=== PATIENT | female | born 1940 | race Caucasian/White ===

== ENCOUNTER → 2016-07-20 16:48 | Outpatient (CLI) | payer MEDICARE ==
[2014-10-05 13:53] VITALS: BMI 29.5
[~2016-07-20 16:48] MED LIST: ADVAIR 250/501 DISK INH; AFRIN NASAL SPR15 ML NASAL; BENICAR HCT 20-1 TA1 PO; BROVANA15 MCG/2 M INH; CELEXA20 MG PO; CHLORASEPTIC177 ML TOPICAL; CLARITIN 10 MG10 MG PO; COLACE100 MG PO; CYMBALTA20 MG PO; DIOVAN40 MG PO; DIOVAN80 MG PO; DITROPAN X5 MG/BOTTL PO; FEXOFENADINE H180 MG PO; FLORAJEN3 CAPS460 MG PO; FLUTICASONE PRO16 GM NASAL; HYDROCHLOROTH12.5 M1 PO; HYDROCODONE-APA1 TAB PO; IPRAT-ALBUT 0.5-3 ML UPD; LASIX40 MG PO; LEVAQUIN500 MG PO; LEVAQUIN750 MG PO; MEDROL DOSE PACK4 MG PO; MUCINEX DM ER1 EAC1 PO; MUCINEX600 MG PO; NICODERM C1 PATCH .1 TRANSDERM; NICODERM C1 PATCH .2 TRANSDERM; NYSTATIN ORAL SU5 ML PO; OMNICEF300 MG PO; ONCOLOGY MOUTHWA5 ML PO; PREDNISONE10 MG PO; PRISTIQ50 MG PO; PROMETHAZINE W473 M1 PO; PROTONIX40 MG PO; PULMICORT0.5 MG/21 UPD; ROBITUSSIN AC (10 M1 PO; SALINE NASAL SP45 ML; SALINE NASAL SP45 ML NASAL; SINGULAIR10 MG PO; STERAPRED 5MG 125 MG PO; TESSALON PERLE100 MG PO; TOVIAZ8 MG PO; ULTRAM50 MG PO; VENTOLIN HFA18 GM INH; XANAX0.5 MG; XANAX0.5 MG PO; ZITHROMAX250 MG; ZITHROMAX250 MG PO
== END | disposition home or self-care (01) ==
LOC: D.MAMMO 13:15
DX: Z12.31 Encounter for screening mammogram for malignant neoplasm of breast (principal)

== ENCOUNTER → 2016-07-24 08:44 | Outpatient (CLI) | payer MEDICARE ==
[2014-10-05 13:53] VITALS: BMI 29.5
== END | disposition home or self-care (01) ==
LOC: D.RT 08:44
DX: J44.9 Chronic obstructive pulmonary disease, unspecified (principal)

== ENCOUNTER → 2016-08-13 14:34 | Outpatient (CLI) | payer MEDICARE ==
[2014-10-05 13:53] VITALS: BMI 29.5
== END | disposition home or self-care (01) ==
LOC: D.RAD 13:00
DX: J44.9 Chronic obstructive pulmonary disease, unspecified (principal)

== ENCOUNTER 2016-08-13 15:20 | Inpatient (IN) | payer MEDICARE ==
[~2016-08-13] VITALS: Ht 162.6 cm; Wt 80.7 kg
[~2016-08-13 15:20] MED LIST changes: -AFRIN NASAL SPR15 ML NASAL; -BROVANA15 MCG/2 M INH; -CELEXA20 MG PO; -COLACE100 MG PO; -DIOVAN40 MG PO; -FEXOFENADINE H180 MG PO; -FLORAJEN3 CAPS460 MG PO; -HYDROCHLOROTH12.5 M1 PO; -HYDROCODONE-APA1 TAB PO; -LASIX40 MG PO; -MUCINEX600 MG PO; -NICODERM C1 PATCH .2 TRANSDERM; -ONCOLOGY MOUTHWA5 ML PO; -PROMETHAZINE W473 M1 PO; -PULMICORT0.5 MG/21 UPD; -SALINE NASAL SP45 ML NASAL; -TESSALON PERLE100 MG PO; -ULTRAM50 MG PO; -VENTOLIN HFA18 GM INH; -XANAX0.5 MG PO
--- NOTE | 2016-08-13 15:30 | NUR ---
RECEIVED TO ROOM 2215 AT THIS TIME FROM DOCTOR'S OFFICE VIA WHEELCHAIR. ALERT AND ORIENTED. OXYGEN PLACED ON 2L VIA NC. PT AMBULATES INDEPENDENTLY AND SELF POSITIONS FOR COMFORT. 20G IV SITED TO LEFT FOREARM X1 ATTEMPT WITH BRISK BLOOD RETURN PRESENT. ASSESSMENT AND HISTORY OBTAINED PER FLOWSHEET. CALL LIGHT IN REACH, WILL CONTINUE WITH PLAN OF CARE.
[2016-08-13 15:45] VITALS: BP 150/74
[2016-08-13] MEDS ORDERED: ULTRAM50 MG PO (16:46)
[2016-08-13] MEDS ORDERED: HYDROCHLOROTH12.5 M1 PO (16:47)
[2016-08-13] MEDS ORDERED: CELEXA20 MG PO (16:47)
[2016-08-13] MEDS ORDERED: TOVIAZ8 MG PO (16:47)
[2016-08-13] MEDS ORDERED: DIOVAN40 MG PO (16:47)
[2016-08-13] MEDS ORDERED: TESSALON PERLE100 MG PO (16:50)
[2016-08-13] MEDS ORDERED: VENTOLIN HFA18 GM INH (16:51)
[2016-08-13] MEDS ORDERED: PROMETHAZINE W473 M1 PO (16:51)
[2016-08-13 17:24] LABS: BASOPHILS 0.5 % (0.0-2.0); EOSINOPHILS 0.6 % (0-7); HEMATOCRIT 45.6 % (36.0-48.0); HEMOGLOBIN 14.9 g/dL (12-16); IMMATURE GRANULOCYTES 1.5 % (0-5); LYMPHOCYTES 15.4 % (15-50); MCH 29.6 pg (26.0-34.0); MCHC 32.7 g/dL (31.0-37.0); MCV 90.7 fL (80.0-100.0); MEAN PLATELET VOLUME 10.3 fL (7.4-10.4); MONOCYTES 11.1 % (2-11); NEUTROPHILS 70.9 % (40-80); PLATELET COUNT 263 10x3/uL (130-400); RBC 5.03 10x6/uL (4.00-5.40); RDW 13.6 % (11.5-14.5); WBC 11.3 10x3/uL (4.8-10.8)
[2016-08-13 17:54] VITALS: BP 150/74; BMI 30.6
[2016-08-13 17:54] LABS: CALC OSMOLALITY 282 mosm/kg (275-300); CALCIUM 9.5 mg/dL (8.5-10.1); CARBON DIOXIDE 33.2 mmol/L (21.0-32.0); CHLORIDE - SERUM 100 mmol/L (98-107); CKMB 12.4 U/L (0.0-3.6); CREATINE KINASE 467 UL (21-215); GLUCOSE 100 mg/dL (74-106); SODIUM 141 mmol/L (136-145); TROPONIN-I 0.019 ng/mL (0.000-0.060); UREA NITROGEN 19 mg/dL (7-18); eGFR NON AFRICAN AMERICAN 57 mL/min (90-120)
[2016-08-13 20:00] VITALS: BP 157/85
--- NOTE | 2016-08-13 22:46 | NUR ---
AWAKE WITH THE TV ON AND GETTING AIDES TO RE-ADJUST HER UP IN THE BED. NO COMPLAINTS VOICED. RESPIRATION WITHOUT DISTRESS AND THE BED IS LOW, RAILS UP X'S 2, WITH THE CALL LIGHT AT HAND.
[2016-08-14] VITALS: BP 137/63
[2016-08-14 04:00] VITALS: BP 141/76
[2016-08-14 04:58] LABS: BASOPHILS 0.3 % (0.0-2.0); EOSINOPHILS 0 % (0-7); HEMATOCRIT 42.6 % (36.0-48.0); HEMOGLOBIN 13.7 g/dL (12-16); LYMPHOCYTES 10.3 % (15-50); MCH 29.2 pg (26.0-34.0); MCHC 32.2 g/dL (31.0-37.0); MCV 90.8 fL (80.0-100.0); MEAN PLATELET VOLUME 10.4 fL (7.4-10.4); MONOCYTES 5.1 % (2-11); NEUTROPHILS 82.3 % (40-80); PLATELET COUNT 250 10x3/uL (130-400); RBC 4.69 10x6/uL (4.00-5.40); RDW 13.8 % (11.5-14.5); WBC 8.6 10x3/uL (4.8-10.8)
[2016-08-14 05:18] LABS: ALBUMIN 3.1 g/dL (3.4-5.0); ANION GAP 9.5 mmol/L (8-16); BILIRUBIN - TOTAL 0.29 mg/dL (0.2-1.3); CALCIUM 9.1 mg/dL (8.5-10.1); CARBON DIOXIDE 32.4 mmol/L (21.0-32.0); CREATININE - SERUM 1.1 mg/dL (0.6-1.3); PHOSPHOROUS 3.7 mg/dL (2.5-4.9); POTASSIUM - SERUM 3.9 mmol/L (3.5-5.1); PROTEIN - SERUM 6.6 g/dL (6.4-8.2)
--- NOTE | 2016-08-14 07:45 | NUR ---
PT. ASLEEP ON BACK IN BED HOB 35 DEGREES WITH SRX2 RESP. EVEN AND NONLABORED WITH O2 AT 2L/MIN VIA NC. BED IN LOWEST POSITION WITH CALL LIGHT WITHIN REACH. WILL CONTINUE WITH PT. PLAN OF CARE
[2016-08-14 08:13] VITALS: BP 133/73
[2016-08-14] MEDS ORDERED: MUCINEX600 MG PO (10:03)
[2016-08-14 10:29] VITALS: Ht 162.6 cm; Wt 80.7 kg
--- NOTE | 2016-08-14 11:05 | NUR ---
PT. LEFT VIA W/C TO CT SCAN AT THIS TIME
--- NOTE | 2016-08-14 12:00 | NUR ---
PT. BACK FROM CT MD AND HOSE TESTER AT BEDSIDE
[2016-08-14 12:43] VITALS: BP 138/73
--- NOTE | 2016-08-14 15:09 | NUR ---
Patient Name: KAMALJIT BANG Admission Status: Urgent Accout number: [id number] Admission Date: 08-13-2016 : 1941 Admission Diagnosis:CHRONIC OBSTRUCTIVE PULMON DISEASE W ACUTE LOWER RESP I Attending: ALFREDO Current LOS: 1 Anticipated DC Date: 08-18-2016 Planned Disposition: Home with Home Health Primary Insurance: [employer] ADV Discharge Planning Comments: CM MET WITH PATIENT REGARDING D/C NEEDS AND PLANS. PATIENT STATED SHE LIVES ALONE AND ONE OF HER FRIENDS WILL PICK HER UP OR SHE WILL DRIVE HERSELF HOME AT DISCHARGE. PATIENT IS INDEPENDENT WITH HER CARE AND HAS A NEBULIZER, PORTABLE O2, AND HOME OXYGEN. PATIENTS PCP IS DR. LAZCANO AND PHARMACY IS [facility]. PATIENT HAS NOT HAD HOME HEALTH BUT SIGNED THE RUFINA FORM WITH [facility] [employer]. PATIENT DENIED ANY OTHER NEEDS. CM WILL CONTINUE TO FOLLOW PATIENT WITH D/C NEEDS AND PLANS. PCP DR. [facility]- [phone] KELLIE BANG (SON) [phone] TALATBruce GOMEZ (FRIEND) [phone] LYDIA BOSS (FRIEND) [phone] Rural Service Engineer: Jenelle Vargas Is the patient Alert and Oriented? Yes 0 * How many steps to enter\exit or inside your home? 3 W/O RAIL 0 * PCP DR. LAZCANO 0 * Pharmacy [facility] 0 * Preadmission Environment Home Alone 0 * ADLs Independent 0 * Equipment Nebulizer Oxygen 0 * Other Equipment PORTABLE O2 0 * List name and contact numbers for known caregivers / representatives who currently or will assist patient after discharge: TALAT GOMEZ (FRIEND) [phone] LYDIA BOSS (FRIEND) [phone] KELLIE BANG (SON) [phone] 0 * Additional services required to return to the preadmission environment? Yes 0 * Can the patient safely return to the preadmission environment? Yes 0 * Has this patient been hospitalized within the prior 30 days at any hospital? No 0 Grand Total: 0
[2016-08-14 15:50] VITALS: BP 128/67
--- NOTE | 2016-08-14 18:08 | NUR ---
LARGE LOOSE BROWN STOOL IN BRIEF AND TOILET
--- NOTE | 2016-08-14 19:41 | NUR ---
PATIENT REQUESTED PAIN MEDICATION FOR 10/10 PAIN ON HER RIGHT SIDE. PATIENT DENIES OTHER NEEDS AT THIS TIME. BED IN LOWEST POSITION AND CALL LIGHT WITHIN REACH.
[2016-08-14 21:03] VITALS: BP 147/66
[2016-08-15 01:17] VITALS: BP 137/71
[2016-08-15 04:00] VITALS: BP 127/63
[2016-08-15 06:12] LABS: BASOPHILS 0.4 % (0.0-2.0); EOSINOPHILS 0 % (0-7); HEMATOCRIT 42.4 % (36.0-48.0); HEMOGLOBIN 13.6 g/dL (12-16); IMMATURE GRANULOCYTES 2.1 % (0-5); LYMPHOCYTES 10.2 % (15-50); MCH 29.2 pg (26.0-34.0); MCHC 32.1 g/dL (31.0-37.0); MEAN PLATELET VOLUME 10.5 fL (7.4-10.4); MONOCYTES 5.1 % (2-11); NEUTROPHILS 82.2 % (40-80); PLATELET COUNT 272 10x3/uL (130-400); RBC 4.66 10x6/uL (4.00-5.40); RDW 13.8 % (11.5-14.5)
[2016-08-15 06:16] LABS: WBC 12.7 10x3/uL (4.8-10.8)
[2016-08-15 06:40] LABS: ALBUMIN 2.9 g/dL (3.4-5.0); ANION GAP 10.4 mmol/L (8-16); BILIRUBIN - TOTAL 0.3 mg/dL (0.2-1.3); CARBON DIOXIDE 32.3 mmol/L (21.0-32.0); POTASSIUM - SERUM 3.7 mmol/L (3.5-5.1); PROTEIN - SERUM 6.5 g/dL (6.4-8.2)
--- NOTE | 2016-08-15 07:15 | NUR ---
PATIENT RECEIVED IN HIGH [place]O POSITION RESTING WITH EYES CLOSED. RESPIRATIONS EVEN AND UNLABORED. SIDE RAILS UP X1. BED IN LOW POSITION. CALL LIGHT IN REACH.
[2016-08-15 08:24] VITALS: BP 149/78
--- NOTE | 2016-08-15 08:43 | NUR ---
PATIENT ALERT IN HIGH [place]O POSITION. RESPIRATIONS EVEN AND UNLABORED. TOLERATED BREAKFAST WELL. SCHEDULED MEDICATION ADMINISTERED. SIDE RAILS UP X1. BED IN LOW POSITION. CALL LIGHT IN REACH.
--- NOTE | 2016-08-15 12:15 | NUR ---
SITTING UP IN CHAIR AT BEDSIDE. RESPIRATIONS EVEN AND UNLABORED. PHYSICIAN AT BEDSIDE. CALL LIGHT IN REACH.
[2016-08-15 12:42] VITALS: BP 152/50
--- NOTE | 2016-08-15 14:38 | NUR ---
ALERT IN BED. C/O PAIN 04/06. ULTRAM PER PRN ORDER. DENIES FURTHER NEEDS. SIDE RAILS UP X2. BED IN LOW POSITION. CALL LIGHT IN REACH.
--- NOTE | 2016-08-15 16:50 | NUR ---
PATIENT IN HIGH NASCIMENTO POSITION. RESPIRATIONS EVEN AND UNLABORED. SCHEDULED IV ABX INITIATED. IV TO LEFT FOREARM PATENT. NO REDNESS OR INFLAMMATION NOTED. SIDE RAILS UP X2. BED IN LOW POSITION. CALL LIGHT IN REACH.
[2016-08-15 18:39] VITALS: BP 149/81
--- NOTE | 2016-08-15 19:32 | NUR ---
PATIENT ON NEB TREATMENT AND REQUESTED WATER. PATIENT DENIES OTHER NEEDS AT THIS TIME. BED IN LOWEST POSITION AND CALL LIGHT WITHIN REACH.
[2016-08-15 20:49] VITALS: BP 121/64
[2016-08-16] VITALS: BP 121/73
[2016-08-16 04:00] VITALS: BP 123/74
[2016-08-16 06:15] LABS: BASOPHILS 0.5 % (0.0-2.0); EOSINOPHILS 0 % (0-7); HEMATOCRIT 41.7 % (36.0-48.0); HEMOGLOBIN 13.4 g/dL (12-16); IMMATURE GRANULOCYTES 3.4 % (0-5); MCH 29.2 pg (26.0-34.0); MCHC 32.1 g/dL (31.0-37.0); MCV 90.8 fL (80.0-100.0); MEAN PLATELET VOLUME 9.9 fL (7.4-10.4); MONOCYTES 4.9 % (2-11); NEUTROPHILS 81.2 % (40-80); PLATELET COUNT 269 10x3/uL (130-400); RBC 4.59 10x6/uL (4.00-5.40); RDW 13.9 % (11.5-14.5); WBC 13.3 10x3/uL (4.8-10.8)
[2016-08-16 06:25] LABS: ALBUMIN 2.9 g/dL (3.4-5.0); ANION GAP 7.9 mmol/L (8-16); BILIRUBIN - TOTAL 0.3 mg/dL (0.2-1.3); CALCIUM 9.1 mg/dL (8.5-10.1); CARBON DIOXIDE 33.1 mmol/L (21.0-32.0); PROTEIN - SERUM 6.4 g/dL (6.4-8.2)
--- NOTE | 2016-08-16 07:05 | NUR ---
PATIENT RECEIVED IN HIGH NASCIMENTO POSITION RESTING WITH EYES CLOSED. RESPIRATIONS EVEN AND UNLABORED. SIDE RAILS UP X2. BED IN LOW POSITION. CALL LIGHT IN REACH.
[2016-08-16 08:07] VITALS: BP 154/81
--- NOTE | 2016-08-16 08:25 | NUR ---
PATIENT IN HIGH NASCIMENTO POSITION WATCHING TV. RESPIRATIONS EVEN AND UNLABORED. SCHEDULED MEDICATION ADMINISTERED. SIDE RAILS UP X2. BED IN LOW POSITION. CALL LIGHT IN REACH. DENIES NEEDS.
--- NOTE | 2016-08-16 11:20 | NUR ---
PATIENT SITTING UP IN CHAIR AT BEDSIDE. DENIES NEEDS. NO SIGNS OF DISTRESS NOTED. CALL LIGHT IN REACH.
[2016-08-16 12:03] VITALS: BP 110/65
--- NOTE | 2016-08-16 13:30 | NUR ---
PATIENT SITTING UP IN CHAIR ALERT AND TALKING ON PHONE. CALL LIGHT IN REACH.
--- NOTE | 2016-08-16 16:00 | NUR ---
PATIENT SITTING UP IN CHAIR ALERT. ASSISTED BACK TO BED. POSITIONED SELF FOR COMFORT. SCHEDULED MEDICATION ADMINISTERED. IV TUBING CHANGED PER PROTOCOL. DENIES NEEDS. SIDE RAILS UP X2. BED IN LOW POSITION. CALL LIGHT IN REACH.
[2016-08-16 16:07] VITALS: BP 124/64
--- NOTE | 2016-08-16 18:25 | NUR ---
PATIENT ALERT IN BED TALKING ON PHONE. SIDE RAILS UP X2. BED IN LOW POSITION. CALL LIGHT IN REACH.
--- NOTE | 2016-08-16 19:26 | NUR ---
PATIENT RESTING IN BED. PATIENT UPSET THAT SHE DOES NOT HAVE CHLORASEPTIC SPRAY. PATIENT DENIES OTHER NEEDS AT THIS TIME. BED IN LOWEST POSITION AND CALL LIGHT WITHIN REACH.
[2016-08-16 21:43] VITALS: BP 146/77
[2016-08-17 05:00] VITALS: BP 139/80
[2016-08-17 05:37] LABS: EOSINOPHILS 0 % (0-7); HEMATOCRIT 41.9 % (36.0-48.0); HEMOGLOBIN 13.3 g/dL (12-16); IMMATURE GRANULOCYTES 6.4 % (0-5); MCHC 31.7 g/dL (31.0-37.0); MCV 91.5 fL (80.0-100.0); MEAN PLATELET VOLUME 10.3 fL (7.4-10.4); MONOCYTES 6.8 % (2-11); NEUTROPHILS 76.8 % (40-80); PLATELET COUNT 286 10x3/uL (130-400); RBC 4.58 10x6/uL (4.00-5.40); RDW 13.7 % (11.5-14.5); WBC 14.3 10x3/uL (4.8-10.8)
[2016-08-17 05:46] LABS: APTT 23.7 SECONDS (22.8-39.4)
[2016-08-17 06:02] LABS: ALBUMIN 2.8 g/dL (3.4-5.0); ANION GAP 9.2 mmol/L (8-16); BILIRUBIN - TOTAL 0.22 mg/dL (0.2-1.3); CALCIUM 8.7 mg/dL (8.5-10.1); CARBON DIOXIDE 34.1 mmol/L (21.0-32.0); CREATININE - SERUM 0.9 mg/dL (0.6-1.3); POTASSIUM - SERUM 4.3 mmol/L (3.5-5.1); PROTEIN - SERUM 5.8 g/dL (6.4-8.2)
--- NOTE | 2016-08-17 07:00 | NUR ---
REPORT RECEIVED FROM ELECTRICAL SYSTEMS DESIGNER NURSE. CALL LIGHT IN REACH.
[2016-08-17 08:34] VITALS: BP 156/84
--- NOTE | 2016-08-17 09:22 | NUR ---
AM MEDS ADMINISTERED PER TAYLOR GILBERT. CALL LIGHT IN REACH.
--- NOTE | 2016-08-17 09:37 | NUR ---
OFFERED PATIENT SCDs D/T MD ORDER BUT PATIENT REFUSES. EXPLAINED IMPORTANCE OF THEM BUT SHE STILL REFUSES.
--- NOTE | 2016-08-17 10:40 | NUR ---
NO NEEDS VOICED AT THIS TIME. CALL LIGHT IN REACH.
[2016-08-17 12:31] VITALS: BP 150/73
--- NOTE | 2016-08-17 12:31 | NUR ---
LYING IN BED,WITHOUT DISTRESS.CALL LIGHT IN REACH
--- NOTE | 2016-08-17 13:51 | NUR ---
PATIENT IS GOING FOR A WALK WITH PYSICAL THERAPY. HAS A FAMILY MEMBER IN THE ROOM WITH HER. ASKED FOR SOME ICE CREAM FOR HER THROAT WHEN SHE GETS BACK.
--- NOTE | 2016-08-17 14:42 | NUR ---
PATIENT SITTING UP IN CHAIR EATING CAKE. TOOK HER CONSENT FORM TO HER. INFORMED HER OF THE PROCEDURE THAT WAS GOING TO TAKE PLACE IN THE MORNING AND SHE STATED THAT SHE DID NOT WANT TO SIGN THE CONSENT UNLESS THE DOCTOR PERFORMING THE PROCEDURE CAME TO TALK TO HER. CALLED RADIOLOGY AND THEY STATED THAT THE DOCTOR WOULD BE AROUND IN THE MORNING TO EXPLAIN EVERYTHING THAT WOULD BE TAKING PLACE. INFORMED PATIENT OF THAT. DOCTOR STACY WAS MAKING HIS ROUNDS AND EXPLAINED THE PROCEDURE TO HER AND SHE WANTED TO SIGN THE CONSENT AFTER THAT.
--- NOTE | 2016-08-17 16:25 | NUR ---
MARLEEN PEREIRA, IN ROOM AT THIS TIME TO SEE PATIENT.
--- NOTE | 2016-08-17 18:33 | NUR ---
NO CHANGES IN INITIAL ASSESSMENT. CALL LIGHT IN REACH. WILL CONTINUE WITH PLAN OF CARE.
[2016-08-17 19:00] VITALS: BP 128/58
--- NOTE | 2016-08-17 20:03 | NUR ---
PATIENT WITH STUDENT NURSE AT BEDSIDE. PATIENT DENIES NEEDS AT THIS TIME. BED IN LOWEST POSITION AND CALL LIGHT WITHIN REACH.
[2016-08-18] VITALS (14 sets, daily range): BP systolic 110–176; BP diastolic 62–94
[2016-08-18 05:16] LABS: BASOPHILS 1.7 % (0.0-2.0); EOSINOPHILS 0 % (0-7); HEMATOCRIT 42.2 % (36.0-48.0); HEMOGLOBIN 13.3 g/dL (12-16); LYMPHOCYTES 8.6 % (15-50); MCH 29.1 pg (26.0-34.0); MCHC 31.5 g/dL (31.0-37.0); MCV 92.3 fL (80.0-100.0); MEAN PLATELET VOLUME 10.2 fL (7.4-10.4); MONOCYTES 6.1 % (2-11); NEUTROPHILS 74.6 % (40-80); PLATELET COUNT 264 10x3/uL (130-400); RBC 4.57 10x6/uL (4.00-5.40); RDW 13.9 % (11.5-14.5); WBC 15.3 10x3/uL (4.8-10.8)
[2016-08-18 05:41] LABS: ALBUMIN 2.8 g/dL (3.4-5.0); ANION GAP 7.9 mmol/L (8-16); BILIRUBIN - TOTAL 0.4 mg/dL (0.2-1.3); CALCIUM 8.7 mg/dL (8.5-10.1); CARBON DIOXIDE 34.4 mmol/L (21.0-32.0); CREATININE - SERUM 0.9 mg/dL (0.6-1.3); POTASSIUM - SERUM 4.3 mmol/L (3.5-5.1)
--- NOTE | 2016-08-18 08:10 | NUR ---
TO X-RAY VIA BED AT PRESENT.
--- NOTE | 2016-08-18 13:54 | NUR ---
NUTRITION MONITORING & EVAL CHART REVIEWED, PT VISIT. TOLERATING REG DIET. GOOD INTAKE MEALS. WILL CONTINUE TO PROVIDE DIET, MONITOR PT PROGRESS. RD FOLLOWING
--- NOTE | 2016-08-18 19:30 | NUR ---
TO REHAB VIA W/CAT PRESENT.
--- NOTE | 2016-08-18 19:40 | NUR ---
PATIENT HAS GUEST AT BEDSIDE AND DENIES NEEDS AT THIS TIME. BED IN LOWEST POSITION AND CALL LIGHT WITHIN REACH.
[2016-08-19] VITALS: BP 165/91
[2016-08-19 04:00] VITALS: BP 153/87
--- NOTE | 2016-08-19 07:30 | NUR ---
REPORT RECEIVED FROM COMPANY DRIVER NURSE. CALL LIGHT IN REACH.
[2016-08-19 08:31] VITALS: BP 148/85
--- NOTE | 2016-08-19 09:10 | NUR ---
ASSESSMENT COMPLETED. REFUSES SCDs. CALL LIGHT IN REACH. WILL CONTINUE WITH PLAN OF CARE.
--- NOTE | 2016-08-19 09:18 | NUR ---
NORCO PO WITH AM MEDS ADMINISTERED PER STUDENT NURSE AND INSTRUCTOR.
--- NOTE | 2016-08-19 10:46 | NUR ---
PT SEEN FOR RN DIALYSIS NOTE. STATES UPSET WITH NOT ABLE TO HAVE NASAL SALINE LEFT AT BEDSIDE. WILL ASK DOCTOR IF THIS WILL BE ALLOWED. STATES DID NOT SLEEP MUCH LAST MUCH DUE TO MUCUS IN THROAT. CALL LIGHT IN REACH
[2016-08-19 11:42] LABS: BASOPHILS 1.2 % (0.0-2.0); EOSINOPHILS 0.1 % (0-7); HEMATOCRIT 42.2 % (36.0-48.0); HEMOGLOBIN 13.5 g/dL (12-16); IMMATURE GRANULOCYTES 9.7 % (0-5); LYMPHOCYTES 10.3 % (15-50); MCH 28.8 pg (26.0-34.0); MEAN PLATELET VOLUME 9.8 fL (7.4-10.4); MONOCYTES 8.9 % (2-11); NEUTROPHILS 69.8 % (40-80); PLATELET COUNT 273 10x3/uL (130-400); RBC 4.68 10x6/uL (4.00-5.40); RDW 13.7 % (11.5-14.5); WBC 14.6 10x3/uL (4.8-10.8)
[2016-08-19 11:46] VITALS: BP 162/74
[2016-08-19 11:58] LABS: ALBUMIN 2.9 g/dL (3.4-5.0); ANION GAP 4.6 mmol/L (8-16); BILIRUBIN - TOTAL 0.54 mg/dL (0.2-1.3); CALCIUM 8.7 mg/dL (8.5-10.1); CARBON DIOXIDE 37.7 mmol/L (21.0-32.0); MCV 90.2 fL (80.0-100.0); POTASSIUM - SERUM 4.3 mmol/L (3.5-5.1); PROTEIN - SERUM 6.1 g/dL (6.4-8.2)
--- NOTE | 2016-08-19 12:40 | NUR ---
SITTING IN CHAIR. NO NEEDS VOICED AT THIS TIME. CALL LIGHT IN REACH.
--- NOTE | 2016-08-19 14:45 | NUR ---
DENIES NEEDS AT THIS TIME. CALL LIGHT IN REACH.
[2016-08-19 16:17] VITALS: BP 147/67
--- NOTE | 2016-08-19 16:19 | NUR ---
NORCO PO WITH EVENING MEDS. CALL LIGHT IN REACH. XANAX PO.
--- NOTE | 2016-08-19 16:24 | NUR ---
IV TUBING CHANGED PER HOSPITAL PROTOCOL.
--- NOTE | 2016-08-19 16:27 | NUR ---
IV FLUIDS DECREASED TO 10 CC/HR BECAUSE OF SLIGHT SWELLING IN FEET.
--- NOTE | 2016-08-19 18:01 | NUR ---
NO CHANGES IN INITIAL ASSESSMENT. CALL LIGHT IN REACH. STILL REFUSES SCDs. WILL CONTINUE WITH PLAN OF CARE.
--- NOTE | 2016-08-19 19:45 | NUR ---
PATIENT TALKING ON PHONE AND DENIES NEEDS AT THIS TIME. BED IN LOWEST POSITION AND CALL LIGHT WITHIN REACH.
[2016-08-19 21:00] VITALS: BP 130/67
--- NOTE | 2016-08-20 00:33 | NUR ---
RESTING WITH EYES CLOSED, HOB @ 45 DEGREES, PROPPED ON PILLOWS, NO DISTRESS NOTED, SR'S UP, CL IN REACH, WILL MONITOR
[2016-08-20 02:30] VITALS: BP 160/79
[2016-08-20 05:00] VITALS: BP 144/66
[2016-08-20 05:40] LABS: BASOPHILS 1.8 % (0.0-2.0); EOSINOPHILS 0.2 % (0-7); HEMATOCRIT 40.7 % (36.0-48.0); HEMOGLOBIN 13.1 g/dL (12-16); IMMATURE GRANULOCYTES 11.6 % (0-5); MCH 29.4 pg (26.0-34.0); MCHC 32.2 g/dL (31.0-37.0); MCV 91.3 fL (80.0-100.0); MONOCYTES 6.9 % (2-11); NEUTROPHILS 68.5 % (40-80); PLATELET COUNT 260 10x3/uL (130-400); RBC 4.46 10x6/uL (4.00-5.40); RDW 13.7 % (11.5-14.5); WBC 12.7 10x3/uL (4.8-10.8)
[2016-08-20 05:59] LABS: ALBUMIN 2.6 g/dL (3.4-5.0); ANION GAP 5.8 mmol/L (8-16); BILIRUBIN - TOTAL 0.4 mg/dL (0.2-1.3); CALCIUM 8.2 mg/dL (8.5-10.1); CARBON DIOXIDE 36.6 mmol/L (21.0-32.0); CREATININE - SERUM 0.9 mg/dL (0.6-1.3); POTASSIUM - SERUM 4.4 mmol/L (3.5-5.1); PROTEIN - SERUM 5.5 g/dL (6.4-8.2)
--- NOTE | 2016-08-20 08:00 | NUR ---
PT ASSESSMENT COMPLETE AWAKE AND ALERT ORINETED X 3 LUNGS CLAER BILATERALLY NO ACUTE DISTRESS NOTED VOICES ALL NEEDS TO STAFF PT VERY DEMANDING AND DOES REFUSE CARE AT TIMES. TOOK ALL MEDS WITH NO DIFFICULTY. WILL MONITOR
[2016-08-20 08:35] VITALS: BP 149/84
--- NOTE | 2016-08-20 11:59 | NUR ---
PT SEEN FOR TAYLOR AGUILERA THIS AM. STATES WAS SOB LAST NIGHT AFTER WAKING UP FROM BAD DREAM X 2 TIMES. STATES EDEMA WAS BAD AND DOESNT KNOW WHY SHE SWELLS AT NIGHT. NO SOB THIS AM. CALL LIGHT IN REACH
[2016-08-20 13:31] VITALS: BP 146/69
--- NOTE | 2016-08-20 15:58 | NUR ---
PT AWAKE AND ALERT ORIENTED UPSET SHE HAS RECIEVED "BAD NEWS" FROM DR GUSTAFSON STATES HE TOLD ME I HAVE CANCER. WILL MONITOR FOR EMOTIONAL NEEDS WELL PHYSICAL NEEDS.
[2016-08-20 16:17] VITALS: BP 143/84
[2016-08-20 20:00] VITALS: BP 142/85
[2016-08-21 03:00] VITALS: BP 132/55
[2016-08-21 05:49] LABS: EOSINOPHILS 0.1 % (0-7); HEMATOCRIT 42.3 % (36.0-48.0); HEMOGLOBIN 13.8 g/dL (12-16); IMMATURE GRANULOCYTES 8.8 % (0-5); LYMPHOCYTES 8.2 % (15-50); MCH 29.6 pg (26.0-34.0); MCHC 32.6 g/dL (31.0-37.0); MCV 90.8 fL (80.0-100.0); MEAN PLATELET VOLUME 10.3 fL (7.4-10.4); MONOCYTES 4.5 % (2-11); NEUTROPHILS 77.4 % (40-80); PLATELET COUNT 270 10x3/uL (130-400); RBC 4.66 10x6/uL (4.00-5.40); RDW 13.9 % (11.5-14.5); WBC 15.2 10x3/uL (4.8-10.8)
[2016-08-21 06:05] LABS: ALBUMIN 2.7 g/dL (3.4-5.0); ANION GAP 7.1 mmol/L (8-16); BILIRUBIN - TOTAL 0.4 mg/dL (0.2-1.3); CALCIUM 8.4 mg/dL (8.5-10.1); CARBON DIOXIDE 36.2 mmol/L (21.0-32.0); CREATININE - SERUM 1.1 mg/dL (0.6-1.3); POTASSIUM - SERUM 4.3 mmol/L (3.5-5.1); PROTEIN - SERUM 5.8 g/dL (6.4-8.2)
--- NOTE | 2016-08-21 07:00 | NUR ---
PT STAYED UP LATE BUT SLEPT WELL FROM 0100 ON. PT HAD SHOWER AND BED CHANGE. +3 DEPENDENT EDEMA. SIGNIFICANTLY REDUCED AFTER ELEVATING ON PILLOW. COMPLETE ASSESSMENT PER FLOW-SHEET. WILL CONTINUE TO MONITOR.
--- NOTE | 2016-08-21 08:00 | NUR ---
PT ASSESSMENT COMPLETE AWAKE AND ALERT ORINETED X 3 LUNGS WITH RHONCHI NOTED TO RIGHT UPPER LOBE SEE ASSESSMENT FLOW SHEET
[2016-08-21 08:13] VITALS: BP 155/86
--- NOTE | 2016-08-21 08:47 | EC ---
PATIENT:KAMALJIT BANG DATE OF SERVICE: 08/13/16 SEX: F MEDICAL RECORD: [id number] DATE OF : 42 LOCATION:[facility] AGE OF PATIENT: 76 ADMISSION DATE: 08/13/16 REFERRING PHYSICIAN: INTERPRETING PHYSICIAN: ALEXIA BEAN MD ECHOCARDIOGRAM REPORT ECHO CHARGES 4 ECHO COMPLETE CLINICAL DIAGNOSIS: SYNCOPE/FEVER ECHOCARDIOGRAPHIC MEASUREMENTS (adult normal given) AC root (d.<3.7cm) 3.5 LV Septum d (<1.2 cm> 1.3 Valve Excursion 1.4 LV Septum (systole) 1.4 Left Atria (s.<4.0cm> 3.6 LVPW d(<1.2cm) 1.4 RV (d.<2.3cm) 3.7 LVPW (sytole) 1.8 LV diastole(<5.6CM) 4.8 MV E-F(>70mm/sec) LV systole 2.9 LVOT Diameter 1.8 MV exc.(>10mm) Est.ejection fraction (50-75%) Pericardial Effusion N DOPPLER: LVIT A 102 E 72.0 LA RVSP 23 LVOT 100 AOP1/2T Asc. Ao 172 RVOT RA PA AV Gradient Peak 11.77 AV Mean 5.9 AV Area 1.8 MV Gradient Peak 6.28 MV Mean 2.07 MV Area COMMENTS: Prosthetic Aides Teacher: Cecilia HAWK Head Of Product:1 Dr. Bean TAPE# PACS DATE OF SERVICE: 08/20/2016 Echocardiogram FINDINGS: 1. Left ventricular chamber size is within normal limits. Left ventricular systolic function is normal. Overall ejection fraction estimated at 60%. 2. Left atrium is within normal limits at 3.6 cm. Right atrium and right ventricular chamber sizes are mildly dilated. 3. Valvular structures have normal structure and motion. ECHOCARDIOGRAM REPORT [id number] KAMALJIT BANG 4. Doppler interrogation reveals mild tricuspid regurgitation, no other valvular insufficiency or stenosis. Pulmonary systolic pressure is normal estimated at 23 mmHg. 5. No evidence of pericardial effusion or left ventricular thrombus. TRANSINT:[id number] Voice Confirmation ID: [id number] DOCUMENT ID: [id number] ALEXIA BEAN MD at 0847 CC: [id number] DICTATION DATE: 08/20/16 1248 GOLF BALL MARKER: 08/20/16 1406 ADM IN [facility] [address] [facility], [facility]
--- NOTE | 2016-08-21 11:50 | NUR ---
AWAKE AND ALERT. ORIENTED X3. NO C/O AT THIS TIME. LUNGS ARE CLEAR BUT DIMINISHED. NO NEEDS EXPRESSED.
[2016-08-21 12:26] VITALS: BP 148/80
--- NOTE | 2016-08-21 16:00 | NUR ---
PT SON AT SIDE UPSET DUE TO NEW DX OF CA WITH POSSIBLE METS.
[2016-08-21 16:02] VITALS: BP 113/50
--- NOTE | 2016-08-21 20:00 | NUR ---
ASSESSMENT COMPLETED, NO ACUTE DISTRESS NOTED, NC IN PLACE, SR'S UP , CL IN REACH, WILL MONITOR
--- NOTE | 2016-08-21 21:37 | NUR ---
MEDS GIVEN PER AUG, REFUSED MIRALAX, COLACE AND MUCINEX, KWAME WELL, DENIES NEEDS, IN GOOD SPIRITS, NO DISTRESS NOTED, CL IN REACH
--- NOTE | 2016-08-21 23:28 | NUR ---
SITTING UP IN BED TALKING WITH VISITOR, NO DISTRESS NOTED, DENIES NEEDS, FALL PRECAUTIONS IN PLACE, CL IN REACH
--- NOTE | 2016-08-22 03:13 | NUR ---
RESTING WITH EYES CLOSED, RESP WITH EASE, HOB ELEVATED,NC IN PLACE, CL IN REACH
[2016-08-22 04:00] VITALS: BP 176/77
[2016-08-22 05:42] LABS: BASOPHILS 0.5 % (0.0-2.0); EOSINOPHILS 0.1 % (0-7); HEMATOCRIT 40.4 % (36.0-48.0); HEMOGLOBIN 12.8 g/dL (12-16); IMMATURE GRANULOCYTES 7.4 % (0-5); LYMPHOCYTES 7.4 % (15-50); MCHC 31.7 g/dL (31.0-37.0); MCV 91.4 fL (80.0-100.0); MONOCYTES 5.2 % (2-11); NEUTROPHILS 79.4 % (40-80); PLATELET COUNT 258 10x3/uL (130-400); RBC 4.42 10x6/uL (4.00-5.40); RDW 13.9 % (11.5-14.5); WBC 16.7 10x3/uL (4.8-10.8)
[2016-08-22 06:17] LABS: ALBUMIN 2.5 g/dL (3.4-5.0); ANION GAP 7.2 mmol/L (8-16); BILIRUBIN - TOTAL 0.6 mg/dL (0.2-1.3); CALCIUM 8.3 mg/dL (8.5-10.1); CARBON DIOXIDE 33.9 mmol/L (21.0-32.0); CREATININE - SERUM 0.9 mg/dL (0.6-1.3); POTASSIUM - SERUM 4.1 mmol/L (3.5-5.1); PROTEIN - SERUM 5.5 g/dL (6.4-8.2)
--- NOTE | 2016-08-22 07:00 | NUR ---
REPORT RECIEVED ASSUMED CARE. PATIENT IN BED WITH IV INTACT. NO COMPLAINTS AT THIS TIME. CALL LIGHT WITHIN REACH.
--- NOTE | 2016-08-22 09:00 | NUR ---
ASSESSMENT COMPLETE, VS STABLE. PATIENT IV INTACT. PATIENT UPSET BECAUSE SHE STATED SHE HAD BEEN LEFT IN URINE FOR FIVE HOURS DURING THE NIGHT AND WAS WET AT THIS TIME. EXPLAINED TO THE PATIENT WE WOULD CLEAN HER UP. STATED SHE DIDNT WANT IT DONE UNTIL AFTER BREAKFAST. SHE STATED SHE WAS TOLD BY NIGHT TIERCE FILLER THAT HE WOULD BE BACK TO CLEAN HER BEFORE HE LEFT AND HE DIDNT SHOW BACK UP. KUSUM BENITEZ 7A SHIFT STATED SHE HAD ASKED THE NIGHT TIERCE FILLER TO CLEAN PATIENT BEFORE HE LEFT. STATED HE WOULD. EXPLAINED TO PATIENT I WOULD SPEAK WITH NIGHT TIERCE FILLER AND TREMAINE HARVEY ABOUT INCIDENT. VERBALIZED UNDERSTANDING. MARTA TIERCE FILLER IN TO HELP PATIENT GET CLEANED UP AT THIS TIME. CALL LIGHT WITHIN REACH.
[2016-08-22 10:36] VITALS: BP 148/79
[2016-08-22 11:32] VITALS: BP 136/79
--- NOTE | 2016-08-22 13:00 | NUR ---
PATIENT IN BED WITH IV INTACT. NO COMPLAINTS AT THIS TIME. IV INTACT. CALL LIGHT WITHIN REACH.
[2016-08-22 15:12] VITALS: BP 140/79
--- NOTE | 2016-08-22 16:50 | NUR ---
PATIENT SITTING UP IN BED WITH IV INTACT. NO COMPLAINTS AT THIS TIME. FAMILY AT BEDSIDE. CALL LIGHT WITHIN REACH.
--- NOTE | 2016-08-22 18:50 | NUR ---
PATIENT SITTING UP IN BED WITH IV INTACT. RECIEVING BREATHING TREATMENT AT THIS TIME. NO COMPLAINTS. CALL LIGHT WITHIN REACH. SPOKE WITH GEOPHYSICAL PARTY CHIEF AND RN ABOUT PATIENTS COMPLAINTS FROM EARLIER.
--- NOTE | 2016-08-22 19:51 | NUR ---
Late Entry 1145- 1250. JOSELITO received request to speak w/ patient' son, Reinaldo Mata. He lives in [place] and works. He is aware of pt's new CA of Lung diagnosis. He had many questions and is concerned about pt's care post discharge. Had questions regarding her chemo, side effects and needs. Reviewed MD plan. Provided some general information regarding the chemo DR had told him pt would receive. Provided contact phone number for [employer]. Discuss managed Medicare PROVIDER. Advised he speak w/ the travel insurance agent regarding what services maybe available. He had questions regarding transportation. Discussed POA, DNR issues. He states he and his mother has had some discussion. Discussed home health services as patient lives alone. Son returned to his mother's room to await pulmonary MD. JOSELITO had spoke w/ the patient and introduced myself before meeting w/ the son.
--- NOTE | 2016-08-22 20:00 | NUR ---
ASSESSMENT COMPLETED, NO ACUTE DISTRESS NOTED, NC AND FALL PRECAUTIONS IN PLACE, CL IN REACH, WILL MONITOR
--- NOTE | 2016-08-22 21:24 | NUR ---
PRN NORCO AND XANAX GIVEN PER REQUEST ALONG WITH ROUTINE MEDS, KWAME WELL, FALL PRECAUTIONS IN PLACE, CL IN REACH
[2016-08-22 21:58] VITALS: BP 145/73
--- NOTE | 2016-08-23 04:04 | NUR ---
PRN PAIN AND ANXIETY MEDS GIVEN PER PT REQUEST, KWAME WELL, CL IN REACH
[2016-08-23 04:30] VITALS: BP 164/98
[2016-08-23 04:58] LABS: BASOPHILS 0.7 % (0.0-2.0); EOSINOPHILS 0.2 % (0-7); HEMATOCRIT 42.6 % (36.0-48.0); HEMOGLOBIN 13.7 g/dL (12-16); IMMATURE GRANULOCYTES 6.3 % (0-5); LYMPHOCYTES 9.2 % (15-50); MCH 29.1 pg (26.0-34.0); MCHC 32.2 g/dL (31.0-37.0); MCV 90.6 fL (80.0-100.0); MEAN PLATELET VOLUME 9.9 fL (7.4-10.4); NEUTROPHILS 74.6 % (40-80); PLATELET COUNT 272 10x3/uL (130-400); RDW 13.9 % (11.5-14.5); WBC 19.8 10x3/uL (4.8-10.8)
[2016-08-23 05:00] VITALS: BP 144/72
[2016-08-23 05:22] LABS: ANION GAP 7.9 mmol/L (8-16); BILIRUBIN - TOTAL 0.54 mg/dL (0.2-1.3); CALCIUM 9.1 mg/dL (8.5-10.1); CARBON DIOXIDE 34.9 mmol/L (21.0-32.0); CREATININE - SERUM 0.9 mg/dL (0.6-1.3); POTASSIUM - SERUM 3.8 mmol/L (3.5-5.1); PROTEIN - SERUM 6.1 g/dL (6.4-8.2)
--- NOTE | 2016-08-23 06:24 | NUR ---
IV SITE TO R HAND INFILTRATED, DC'D WITH CATH INTACT, ATTEMPTED TO RESITE X1 IN L FOREARM, PT VERY JUMPY, REFUSED 2ND ATTEMPT UNTIL "THE PAIN MEDICINE AND XANAX HAVE TIME TO SOAK IN", [address] IN L HAND AT THIS TIME X1 ATTEMPT, MED ADMINISTERED PER AUG, KWAME WELL, CL IN REACH
--- NOTE | 2016-08-23 07:00 | NUR ---
REPORT RECIEVED ASSUMED CARE. PATIENT IN BED WITH IV INTACT. NO COMPLAINTS. EYES CLOSED RESTING QUIETLY. CALL LIGHT WITHIN REACH.
[2016-08-23 08:37] VITALS: BP 142/82
[2016-08-23 12:00] VITALS: BP 129/64
[2016-08-23 15:58] VITALS: BP 128/60
--- NOTE | 2016-08-23 18:32 | NUR ---
PATIENT IN BED WITH IV INTACT. NO COMPLAINTS AT THIS TIME. SITTING UP IN BED TALKING ON THE PHONE. CALL LIGHT WITHIN REACH.
--- NOTE | 2016-08-23 19:15 | NUR ---
RECIEVED SHIFT REPORT. PT IS LYING IN BED. ALERT AND ORIENTED AND ABLE TO VERBALIZE NEEDS. IV IS PATENT AND FLUIDS ARE RUNNING PER ORDER. O2 @ 2 PER NASAL CANNULA. PT IS ABMULATORY WITH ASSISTANCE BUT IS ABLE TO TURN SELF IN BED FOR COMFORT AND SKIN CARE. PT STATES PAIN IS 4/10. PT REQUESTING XANAX. INSTRUCTED PT THAT I WOULD BRING WITH NIGHT TIME MEDICATIONS. VERBALIZED UNDERSTANDING. NO FURTHER NEEDS AT THIS TIME. WILL CONTINUE TO MONITOR. SIDE RAILS ARE UP X 2. BED IS IN LOWEST POSITION. CALL LIGHT IS WITHIN REACH.
--- NOTE | 2016-08-23 20:10 | NUR ---
SHIFT ASSESSMENT COMPLETED. NIGHT MEDS GIVEN WITH NO PROBLEMS. REQUESTED XANAX ADMINISTERED PER ORDER. PT C/O PAIN 10/05. ADMINISTERED PRESCRIBED PRN NORCO PER ORDER. DENIES FURTHER NEEDS. WILL MONITOR. SIDE RAILS X 2. BED LOW. CALL LIGHT IN REACH.
[2016-08-23 21:00] VITALS: BP 154/81
[2016-08-24 01:00] VITALS: BP 144/80
[2016-08-24 05:00] VITALS: BP 138/78
[2016-08-24 05:39] LABS: BASOPHILS 0.9 % (0.0-2.0); EOSINOPHILS 0.2 % (0-7); HEMOGLOBIN 13.8 g/dL (12-16); IMMATURE GRANULOCYTES 6.7 % (0-5); LYMPHOCYTES 10.4 % (15-50); MCH 29.5 pg (26.0-34.0); MCHC 32.1 g/dL (31.0-37.0); MCV 91.9 fL (80.0-100.0); MEAN PLATELET VOLUME 10.5 fL (7.4-10.4); MONOCYTES 7.7 % (2-11); NEUTROPHILS 74.1 % (40-80); PLATELET COUNT 254 10x3/uL (130-400); RBC 4.68 10x6/uL (4.00-5.40); RDW 14.3 % (11.5-14.5); WBC 18.9 10x3/uL (4.8-10.8)
[2016-08-24 05:50] LABS: ALBUMIN 3.2 g/dL (3.4-5.0); ANION GAP 12.2 mmol/L (8-16); BILIRUBIN - TOTAL 0.63 mg/dL (0.2-1.3); CARBON DIOXIDE 31.6 mmol/L (21.0-32.0); CREATININE - SERUM 0.9 mg/dL (0.6-1.3); POTASSIUM - SERUM 3.8 mmol/L (3.5-5.1); PROTEIN - SERUM 6.1 g/dL (6.4-8.2)
--- NOTE | 2016-08-24 07:00 | NUR ---
REPORT RECIEVED ASSUMED CARE. PATIENT IN BED WITH IV INTACT. NO COMPLAINTS OR SIGNS OF DISTRESS. IV INTACT. O2 ON. CALL LIGHT WITHIN REACH.
[2016-08-24 07:56] VITALS: BP 127/62
--- NOTE | 2016-08-24 08:10 | NUR ---
PATIENT ASSESSMENT COMPLETE, VS STABLE. NO COMPLAINTS. IV INTACT. CALL LIGHT WITHIN REACH.
[2016-08-24 12:42] VITALS: BP 128/70
--- NOTE | 2016-08-24 13:18 | NUR ---
NUTRITION MONITORING & EVAL CHART REVIEWED. PT TOLERATING REG DIET. 50 TO 75% INTAKE RECENT MEALS. RD FOLLOWING
[2016-08-24 16:07] VITALS: BP 113/63
--- NOTE | 2016-08-24 18:45 | NUR ---
PATIENT IN BED WITH IV INTACT. NO COMPLAINTS. FRIEND AT BEDSIDE. CALL LIGHT WITHIN REACH.
--- NOTE | 2016-08-24 19:20 | NUR ---
RECIEVED SHIFT REPORT. PT IS LYING IN BED. ALERT AND ORIENTED AND ABLE TO VERBALIZE NEEDS. IV IS PATENT AND FLUIDS ARE RUNNING PER ORDER. O2 @ 2 PER NASAL CANNULA. PT IS UP TO BEDSIDE COMMODE WITH ASSISTANCE. PT STATES PAIN IS 3/10. NO NEEDS ARE VERBALIZED AT THIS TIME. WILL CONTINUE TO MONITOR. SIDE RAILS ARE UP X 2. BED IS IN LOWEST POSITION. CALL LIGHT IS WITHIN REACH.
--- NOTE | 2016-08-24 20:53 | NUR ---
SHIFT ASSESSMENT COMPLETED. NIGHT MEDS GIVEN WITH NO PROBLEMS. PT REFUSED SCHEDULED MIRALAX AND COLACE. NO NEEDS ARE VOICED AT THIS TIME. WILL MONITOR. SIDE RAILS X 2. BED LOW. CALL LIGHT IN REACH.
[2016-08-24 21:00] VITALS: BP 115/66
[2016-08-25] VITALS (13 sets, daily range): BP systolic 130–176; BP diastolic 58–95
[2016-08-25 04:35] LABS: BASOPHILS 0.6 % (0.0-2.0); EOSINOPHILS 0.2 % (0-7); HEMOGLOBIN 13.1 g/dL (12-16); IMMATURE GRANULOCYTES 6.4 % (0-5); LYMPHOCYTES 9.7 % (15-50); MCH 29.1 pg (26.0-34.0); MCV 91.1 fL (80.0-100.0); NEUTROPHILS 74.1 % (40-80); PLATELET COUNT 257 10x3/uL (130-400); RDW 14.2 % (11.5-14.5); WBC 17.8 10x3/uL (4.8-10.8)
[2016-08-25 04:54] LABS: ALBUMIN 2.9 g/dL (3.4-5.0); ANION GAP 6.6 mmol/L (8-16); BILIRUBIN - TOTAL 0.49 mg/dL (0.2-1.3); CALCIUM 8.7 mg/dL (8.5-10.1); CREATININE - SERUM 0.9 mg/dL (0.6-1.3); POTASSIUM - SERUM 3.6 mmol/L (3.5-5.1); PROTEIN - SERUM 5.6 g/dL (6.4-8.2)
--- NOTE | 2016-08-25 10:00 | NUR ---
TOOK ALL OF AM MEDS. NO C/O AT THIS TIME. BATH AND LINEN CHANGED PER STAFF. DENIES NEEDS.
--- NOTE | 2016-08-25 14:40 | NUR ---
CARBOPLATIN 550 MG IN 250 ML NS INITIATED PER CHEMO POLICY VIA RT FOREARM MIDLINE. MIDLINE WITHOUT ERYTHEMA AND EDEMA, GOOD BLLOD RETURN AND FLUSHES WITH EASE. VITAL SIGNS SEE CHEMO VITALS SHEET. MONITORED PATIENT ONE ON ONE FOR 15 MIN WITHOUT S/S OF REACTION. BED LOW CL IN REACH. BEDSIDE NURSE RICHA CRUZ RN AND GALE RN WILL CONTINUE TO MONITOR VITAL SIGNS.
--- NOTE | 2016-08-25 19:30 | NUR ---
RECIEVED SHIFT REPORT. PT IS LYING IN BED. ALERT AND ORIENTED AND ABLE TO VERBALIZE NEEDS. IV IS PATENT AND FLUIDS ARE RUNNING PER ORDER. O2 @ 2 PER NASAL CANNULA. PT IS AMBULATORY WITH ASSISTANCE BUT IS ABLE TO TURN SELF IN BED FOR COMFORT AND SKIN CARE. PT STATES PAIN IS 3/10. NO NEEDS ARE VERBALIZED AT THIS TIME. WILL CONTINUE TO MONITOR. SIDE RAILS ARE UP X 2. BED IS IN LOWEST POSITION. CALL LIGHT IS WITHIN REACH.
--- NOTE | 2016-08-25 21:55 | NUR ---
SHIFT ASSESSMENT COMPLETED. NIGHT MEDS GIVEN WITH NO PROBLEMS. PT REFUSED SCHEDULED MIRALAX. PT C/O PAIN 09/04 AND ANXIETY. ADMINISTERED PRESCRIBED PRN NORCO AND XANAX PER ORDER. DENIES FURTHER NEEDS. WILL MONITOR. SIDE RAILS X 2. BED LOW. CALL LIGHT IN REACH.
[2016-08-26] VITALS (12 sets, daily range): BP systolic 130–181; BP diastolic 65–94
[2016-08-26 05:59] LABS: BASOPHILS 0.4 % (0.0-2.0); EOSINOPHILS 0.1 % (0-7); HEMATOCRIT 39.4 % (36.0-48.0); HEMOGLOBIN 12.5 g/dL (12-16); IMMATURE GRANULOCYTES 5.1 % (0-5); LYMPHOCYTES 6.2 % (15-50); MCHC 31.7 g/dL (31.0-37.0); MCV 91.4 fL (80.0-100.0); MEAN PLATELET VOLUME 10.2 fL (7.4-10.4); MONOCYTES 5.4 % (2-11); NEUTROPHILS 82.8 % (40-80); PLATELET COUNT 251 10x3/uL (130-400); RBC 4.31 10x6/uL (4.00-5.40); RDW 14.2 % (11.5-14.5); WBC 14.6 10x3/uL (4.8-10.8)
[2016-08-26 06:25] LABS: ALBUMIN 2.6 g/dL (3.4-5.0); ANION GAP 6.7 mmol/L (8-16); BILIRUBIN - TOTAL 0.6 mg/dL (0.2-1.3); CALCIUM 8.2 mg/dL (8.5-10.1); CARBON DIOXIDE 34.2 mmol/L (21.0-32.0); CREATININE - SERUM 0.8 mg/dL (0.6-1.3); POTASSIUM - SERUM 3.9 mmol/L (3.5-5.1); PROTEIN - SERUM 5.5 g/dL (6.4-8.2)
--- NOTE | 2016-08-26 16:37 | NUR ---
DRESSING CHANGED TO RIGHT UPPER ARM MIDLINE USING STERILE TECHNIQUE.
--- NOTE | 2016-08-26 19:00 | NUR ---
PATIENT IN BED WATCHING TV. HOB 45 DEGREES. AAOX4. RR EVEN AND UNLABORED. O2 @ 2L VIA NC. 0 S/S OF DISTRESS. STATES PAIN IS A 5/10. RIGHT MIDLINE PATENT WITH NO REDNESS OR SWELLING. TELEMETRY ON. B/A ON. SRX2. BED LOW. CALL LIGHT WITHIN REACH.
--- NOTE | 2016-08-26 22:00 | NUR ---
ASSISTED PATIENT TO BSC. WIPED PATIENT DOWN WITH WIPES AND CHANGED LINENS AND GOWN BECAUSE PATIENT HAD SOME STRESS INCONTINENCE FROM COUGING. PATIENT NOW BACK IN BED. NIGHTTIME MEDS GIVEN. NORCO GIVEN FOR PAIN. WILL REASSESS.
[2016-08-27] VITALS (12 sets, daily range): BP systolic 112–159; BP diastolic 54–82
--- NOTE | 2016-08-27 03:00 | NUR ---
PATIENT SLEEPING WITH NO DISTRESS NOTED. CALL LIGHT WITHIN REACH.
[2016-08-27 05:35] LABS: BASOPHILS 0.2 % (0.0-2.0); EOSINOPHILS 0.1 % (0-7); HEMATOCRIT 38.3 % (36.0-48.0); HEMOGLOBIN 12.2 g/dL (12-16); IMMATURE GRANULOCYTES 2.7 % (0-5); LYMPHOCYTES 4.6 % (15-50); MCH 29.3 pg (26.0-34.0); MCHC 31.9 g/dL (31.0-37.0); MCV 92.1 fL (80.0-100.0); MEAN PLATELET VOLUME 10.2 fL (7.4-10.4); MONOCYTES 4.6 % (2-11); NEUTROPHILS 87.8 % (40-80); PLATELET COUNT 242 10x3/uL (130-400); RBC 4.16 10x6/uL (4.00-5.40); RDW 14.2 % (11.5-14.5); WBC 15.7 10x3/uL (4.8-10.8)
[2016-08-27 06:06] LABS: ALBUMIN 2.7 g/dL (3.4-5.0); ANION GAP 7.8 mmol/L (8-16); BILIRUBIN - TOTAL 0.73 mg/dL (0.2-1.3); CALCIUM 8.4 mg/dL (8.5-10.1); CARBON DIOXIDE 34.4 mmol/L (21.0-32.0); CREATININE - SERUM 0.8 mg/dL (0.6-1.3); POTASSIUM - SERUM 4.2 mmol/L (3.5-5.1); PROTEIN - SERUM 5.3 g/dL (6.4-8.2)
--- NOTE | 2016-08-27 07:17 | NUR ---
SLEEPING AT THIS TIME WITH RESPIRATIONS EVEN AND NON LABORED. CALL LIGHT IN REACH AND BED ALARM ON. WILL CONTINUE WITH PLAN OF CARE.
--- NOTE | 2016-08-27 09:15 | NUR ---
PRN NORCO AND XANAX ADMINISTERED PER ORDER. CALL LIGHT IN REACH AND RESPIRATIONS EVEN AND NON LABORED. WILL CONTINUE WITH PLAN OF CARE.
--- NOTE | 2016-08-27 10:08 | NUR ---
SCHEDULED MEDICATIONS ADMINISTERED AT THIS TIME. CALL LIGHT IN REACH. ASSESSMENT PERFORMED PER FLOWSHEET. IN BED WITH BED ALARM ON AND SRX2 WITH BED IN LOWEST POSITION AND WHEELS LOCKED. DENIES FURTHER NEEDS AT THIS TIME. WILL CONTINUE WITH PLAN OF CARE.
--- NOTE | 2016-08-27 10:23 | NUR ---
NUTRITION MONITORING & EVAL CHART REVIEWED. PT TOLERATING REG DIET. 100% INTAKE RECENT MEALS. WILL CONTINUE TO PROVIDE DIET, MONITOR PO INTAKE. RD FOLLOWING
--- NOTE | 2016-08-27 11:50 | NUR ---
WORKING WITH PHYSICAL THERAPY AT THIS TIME. LINENS CHANGED FOR INCONTINENT EPISODE OF URINE AT THIS TIME. REMINDED PT TO CALL FOR ASSISTANCE WITH TOILETING AND PT VERBALIZED UNDERSTANDING.
--- NOTE | 2016-08-27 13:54 | NUR ---
SCHEDULED MEDICATIONS ADMINISTERED AT THIS TIME. PT REMAINS CLEAN AND DRY. DENIES FURTHER NEEDS. BED ALARM ON. WILL CONTINUE WITH PLAN OF CARE.
--- NOTE | 2016-08-27 16:10 | NUR ---
CHEMOTHERAPY INITIATED PER ORDER AT THIS TIME. VITAL SIGNS STABLE. RIGHT UPPER ARM MIDLINE PATENT WITH BRISK BLOOD RETURN PRESENT. SCHEDULED MEDICATIONS ADMINISTERED. CALL LIGHT IN REACH, WILL CONTINUE WITH PLAN OF CARE. BED ALARM ON.
--- NOTE | 2016-08-27 18:30 | NUR ---
CHEMO COMPLETE AT THIS TIME. VITAL SIGNS REMAIN STABLE AND RIGHT UPPER ARM MIDLINE PATENT WITH BRISK BLOOD RETURN PRESENT. PT DENIES NEEDS AT THIS TIME. CALL LIGHT IN REACH, WILL CONTINUE WITH PLAN OF CARE.
--- NOTE | 2016-08-27 19:00 | NUR ---
PATIENT IN BED WATCHING TV. HOB 40 DEGREES. AAOX4. RR EVEN AND UNLABORED. O2 @ 2L VIA NC. 0 S/S OF DISTRESS. RIGHT MIDLINE PATENT WITH NO REDNESS OR SWELLING. TELEMETRY ON. B/A ON. SRX2. BED LOW. CALL LIGHT WITHIN REACH.
[2016-08-28 00:45] VITALS: BP 114/57
[2016-08-28 05:29] LABS: BASOPHILS 0.1 % (0.0-2.0); EOSINOPHILS 0 % (0-7); HEMATOCRIT 38.2 % (36.0-48.0); HEMOGLOBIN 12.2 g/dL (12-16); IMMATURE GRANULOCYTES 1.1 % (0-5); LYMPHOCYTES 6.3 % (15-50); MCH 29.3 pg (26.0-34.0); MCHC 31.9 g/dL (31.0-37.0); MCV 91.8 fL (80.0-100.0); MONOCYTES 3.2 % (2-11); NEUTROPHILS 89.3 % (40-80); PLATELET COUNT 224 10x3/uL (130-400); RBC 4.16 10x6/uL (4.00-5.40); RDW 14.2 % (11.5-14.5)
[2016-08-28 05:58] LABS: ALBUMIN 2.6 g/dL (3.4-5.0); ANION GAP 8.3 mmol/L (8-16); BILIRUBIN - TOTAL 0.9 mg/dL (0.2-1.3); CALCIUM 8.5 mg/dL (8.5-10.1); CARBON DIOXIDE 32.8 mmol/L (21.0-32.0); CREATININE - SERUM 0.8 mg/dL (0.6-1.3); PHOSPHOROUS 3.4 mg/dL (2.5-4.9); POTASSIUM - SERUM 4.1 mmol/L (3.5-5.1); PROTEIN - SERUM 5.2 g/dL (6.4-8.2)
--- NOTE | 2016-08-28 07:35 | NUR ---
AWAKE AND ALERT AT THIS TIME. RECEIVING PAIN MEDICATION PER ORDER FROM CANDICE SEAY. DENIES NEEDS AT PRESENT TIME. CALL LIGHT IN REACH, WILL CONTINUE WITH PLAN OF CARE.
[2016-08-28 08:03] VITALS: BP 153/68
--- NOTE | 2016-08-28 10:34 | NUR ---
PT REFUSES LASIX AT THIS TIME. STATES, "I DON'T THINK I NEED THAT NOW. MY SWELLING IS NOT BAD IT WAS YESTERDAY. I'M NOT REFUSING IT. I WANT TO WAIT UNTIL I SPEAK WITH DR. GREEN BEFORE I GET THAT." +1 PITTING EDEMA NOTED TO BLE. DENIES PAIN OR DISCOMFORT TO LEGS.
[2016-08-28] MEDS ORDERED: IPRAT-ALBUT 0.5-3 ML UPD (11:46)
[2016-08-28] MEDS ORDERED: FEXOFENADINE H180 MG PO (11:46)
[2016-08-28] MEDS ORDERED: NICODERM C1 PATCH .2 TRANSDERM (11:46)
[2016-08-28] MEDS ORDERED: BROVANA15 MCG/2 M INH (11:46)
[2016-08-28] MEDS ORDERED: AFRIN NASAL SPR15 ML NASAL (11:48)
[2016-08-28] MEDS ORDERED: PULMICORT0.5 MG/21 UPD (11:48)
[2016-08-28] MEDS ORDERED: MUCINEX DM ER1 EAC1 PO (11:48)
[2016-08-28] MEDS ORDERED: FLORAJEN3 CAPS460 MG PO (11:49)
[2016-08-28] MEDS ORDERED: COLACE100 MG PO (11:49)
[2016-08-28] MEDS ORDERED: SALINE NASAL SP45 ML NASAL (11:49)
[2016-08-28] MEDS ORDERED: DITROPAN X5 MG/BOTTL PO (11:50)
[2016-08-28] MEDS ORDERED: LASIX40 MG PO (11:51)
[2016-08-28 12:45] VITALS: BP 131/63
[2016-08-28] MEDS ORDERED: PREDNISONE10 MG PO (13:14)
--- NOTE | 2016-08-28 13:50 | NUR ---
CM REASSESSMENT NOTE: PATIENT IS TO D/C HOME TODAY - FRIEND (ISHAAN) IS DRIVING HER SHE WILL BE STAYING WITH HER PER PATIENT. [facility] WAS NOTIFIED OF D/C. PATIENT HAS OXYGEN AND NEBULIZER AT HOME. PATIENT REFUSING WALKER (JON WITH PT WITNESS). PATIENT STATED IF SHE NEEDED ONE SHE WOULD CALL DO NOT GET ONE.
--- NOTE | 2016-08-28 21:12 | NUR ---
WHEELED PATIENT DOWN TO VEHICLE WITH FAMILY FRIENDS. PATIENT AAOX4 WITH NO DISTRESS.
== END 2016-08-28 21:12 | disposition home health service (06) | DRG 190 ==
LOC: D.MS 15:20
PROVIDERS: Family Medicine; Internal Medicine Pulmonary Disease; Radiology Vascular & Interventional Radiology; ADMIT Emergency Medicine
PROC: 0BBK3ZX Excision of Right Lung, Percutaneous Approach, Diagnostic (ICD-10-PCS; principal; 2016-08-18 08:05)
PROC: 05HB33Z Insertion of Infusion Device into Right Basilic Vein, Percutaneous Approach (ICD-10-PCS; 2016-08-25)
PROC: B54MZZA Ultrasonography of Right Upper Extremity Veins, Guidance (ICD-10-PCS; 2016-08-25)
PROC: 3E03305 Introduction of Other Antineoplastic into Peripheral Vein, Percutaneous Approach (ICD-10-PCS; 2016-08-25)
DX: J44.0 Chronic obstructive pulmonary disease with (acute) lower respiratory infection (principal); J15.6 Pneumonia due to other Gram-negative bacteria; F17.203 Nicotine dependence unspecified, with withdrawal; J98.11 Atelectasis; C34.91 Malignant neoplasm of unspecified part of right bronchus or lung; Z99.81 Dependence on supplemental oxygen; E78.5 Hyperlipidemia, unspecified; F41.0 Panic disorder [episodic paroxysmal anxiety]; I10 Essential (primary) hypertension; R04.0 Epistaxis; K21.9 Gastro-esophageal reflux disease without esophagitis; N32.81 Overactive bladder; F41.9 Anxiety disorder, unspecified; R01.1 Cardiac murmur, unspecified; K76.89 Other specified diseases of liver; M54.5 Low back pain; G89.29 Other chronic pain; E55.9 Vitamin D deficiency, unspecified; J44.1 Chronic obstructive pulmonary disease with (acute) exacerbation; M85.80 Other specified disorders of bone density and structure, unspecified site; M19.90 Unspecified osteoarthritis, unspecified site

== ENCOUNTER 2016-08-29 06:56 | Emergency (ER) | payer MEDICARE ==
[2016-08-14 10:29] VITALS: BMI 30.5
[~2016-08-29 06:56] MED LIST changes: +AFRIN NASAL SPR15 ML NASAL; +BROVANA15 MCG/2 M INH; +CELEXA20 MG PO; +COLACE100 MG PO; +DIOVAN40 MG PO; +FEXOFENADINE H180 MG PO; +FLORAJEN3 CAPS460 MG PO; +HYDROCHLOROTH12.5 M1 PO; +LASIX40 MG PO; +MUCINEX600 MG PO; +NICODERM C1 PATCH .2 TRANSDERM; +PROMETHAZINE W473 M1 PO; +PULMICORT0.5 MG/21 UPD; +SALINE NASAL SP45 ML NASAL; +TESSALON PERLE100 MG PO; +ULTRAM50 MG PO; +VENTOLIN HFA18 GM INH
[2016-08-29 08:57] LABS: BASOPHILS 0.1 % (0.0-2.0); EOSINOPHILS 1.6 % (0-7); IMMATURE GRANULOCYTES 0.3 % (0-5); LYMPHOCYTES 3.3 % (15-50); MCH 29.5 pg (26.0-34.0); MCHC 32.7 g/dL (31.0-37.0); MCV 90.4 fL (80.0-100.0); MEAN PLATELET VOLUME 9.6 fL (7.4-10.4); MONOCYTES 0.4 % (2-11); NEUTROPHILS 94.3 % (40-80); PLATELET COUNT 199 10x3/uL (130-400); RBC 4.98 10x6/uL (4.00-5.40); RDW 13.7 % (11.5-14.5); WBC 9.8 10x3/uL (4.8-10.8)
[2016-08-29 08:59] LABS: ALBUMIN 3.1 g/dL (3.4-5.0); ANION GAP 8.7 mmol/L (8-16); BILIRUBIN - TOTAL 1.2 mg/dL (0.2-1.3); CALCIUM 8.9 mg/dL (8.5-10.1); CREATININE - SERUM 0.8 mg/dL (0.6-1.3); POTASSIUM - SERUM 3.7 mmol/L (3.5-5.1); PROTEIN - SERUM 6.3 g/dL (6.4-8.2)
[2016-08-29 09:10] LABS: HEMOGLOBIN 14.7 g/dL (12-16)
== END 2016-08-29 11:13 | disposition home or self-care (01) ==
LOC: D.ER 06:56
PROVIDERS: Emergency Medicine
DX: R11.10 Vomiting, unspecified (principal); E86.0 Dehydration; J44.9 Chronic obstructive pulmonary disease, unspecified; C34.90 Malignant neoplasm of unspecified part of unspecified bronchus or lung; F17.200 Nicotine dependence, unspecified, uncomplicated

== ENCOUNTER 2016-09-03 09:42 | Inpatient (IN) | payer MEDICARE ==
[~2016-09-03] VITALS: Ht 162.6 cm; Wt 88.9 kg
[2016-09-03 10:58] LABS: HEMATOCRIT 34.7 % (36.0-48.0); HEMOGLOBIN 11.7 g/dL (12-16); MCHC 33.7 g/dL (31.0-37.0); MCV 86.1 fL (80.0-100.0); MEAN PLATELET VOLUME 9.2 fL (7.4-10.4); PLATELET COUNT 72 10x3/uL (130-400); RBC 4.03 10x6/uL (4.00-5.40); RDW 13.1 % (11.5-14.5)
[2016-09-03 10:59] LABS: WBC 0.8 10x3/uL (4.8-10.8)
[2016-09-03 11:19] LABS: ALBUMIN 2.6 g/dL (3.4-5.0); ANION GAP 4.4 mmol/L (8-16); BILIRUBIN - TOTAL 1.21 mg/dL (0.2-1.3); CALCIUM 8.5 mg/dL (8.5-10.1); CARBON DIOXIDE 36.4 mmol/L (21.0-32.0); CREATININE - SERUM 0.8 mg/dL (0.6-1.3); PROTEIN - SERUM 5.9 g/dL (6.4-8.2)
[2016-09-03 11:23] LABS: POTASSIUM - SERUM 2.8 mmol/L (3.5-5.1)
[2016-09-03 12:06] LABS: EOSINOPHILS 2 % (0-7); LYMPHOCYTES 81 % (15-50); MONOCYTES 1 % (2-11); NEUTROPHILS 13 % (40-80); PLATELET ESTIMATE DECREASED
[2016-09-03 12:07] LABS: POLYCHROMASIA 1+; SPHEROCYTES 1+
[2016-09-03 12:08] LABS: TEAR DROP CELLS 1+
[2016-09-03 14:42] VITALS: BP 116/61
[2016-09-03 15:48] VITALS: BP 116/61
[2016-09-03 17:40] LABS: MAGNESIUM - SERUM 1.7 mg/dL (1.8-2.4); POTASSIUM - SERUM 3.1 mmol/L (3.5-5.1)
[2016-09-04 04:00] VITALS: BP 145/69
[2016-09-04 05:49] LABS: BASOPHILS 0 % (0.0-2.0); EOSINOPHILS 0 % (0-7); HEMATOCRIT 32.4 % (36.0-48.0); HEMOGLOBIN 11.2 g/dL (12-16); LYMPHOCYTES 57.7 % (15-50); MCH 29.2 pg (26.0-34.0); MCHC 34.6 g/dL (31.0-37.0); MCV 84.4 fL (80.0-100.0); MEAN PLATELET VOLUME 10.1 fL (7.4-10.4); MONOCYTES 7.7 % (2-11); NEUTROPHILS 34.6 % (40-80); RBC 3.84 10x6/uL (4.00-5.40); RDW 13.1 % (11.5-14.5)
[2016-09-04 05:57] LABS: PLATELET COUNT 51 10x3/uL (130-400); WBC 0.3 10x3/uL (4.8-10.8)
[2016-09-04 06:05] LABS: CALC OSMOLALITY 270 mosm/kg (275-300); CALCIUM 8.3 mg/dL (8.5-10.1); CARBON DIOXIDE 28.9 mmol/L (21.0-32.0); CHLORIDE - SERUM 96 mmol/L (98-107); CREATININE - SERUM 0.6 mg/dL (0.6-1.3); MAGNESIUM - SERUM 1.8 mg/dL (1.8-2.4); POTASSIUM - SERUM 3.5 mmol/L (3.5-5.1); SODIUM 134 mmol/L (136-145); UREA NITROGEN 13 mg/dL (7-18); eGFR NON AFRICAN AMERICAN > 90 mL/min (90-120)
[2016-09-04 06:06] LABS: GLUCOSE 152 mg/dL (74-106)
[2016-09-04 07:59] VITALS: BP 133/70
[2016-09-04 10:42] VITALS: Ht 162.6 cm; Wt 88.9 kg
[2016-09-04 12:21] VITALS: BP 157/76
[2016-09-04 16:39] VITALS: BP 141/72
[2016-09-04 20:00] VITALS: BP 122/85
[2016-09-05 06:14] LABS: BASOPHILS 0 % (0.0-2.0); EOSINOPHILS 0 % (0-7); HEMOGLOBIN 10.1 g/dL (12-16); IMMATURE GRANULOCYTES 2.9 % (0-5); MCH 28.9 pg (26.0-34.0); MCHC 33.7 g/dL (31.0-37.0); MCV 85.7 fL (80.0-100.0); MEAN PLATELET VOLUME 9.5 fL (7.4-10.4); NEUTROPHILS 17.1 % (40-80); RDW 12.9 % (11.5-14.5)
[2016-09-05 06:36] LABS: CALC OSMOLALITY 271 mosm/kg (275-300); CALCIUM 8.6 mg/dL (8.5-10.1); CARBON DIOXIDE 30.9 mmol/L (21.0-32.0); CHLORIDE - SERUM 97 mmol/L (98-107); CREATININE - SERUM 0.7 mg/dL (0.6-1.3); GLUCOSE 140 mg/dL (74-106); MAGNESIUM - SERUM 1.9 mg/dL (1.8-2.4); POTASSIUM - SERUM 3.3 mmol/L (3.5-5.1); SODIUM 135 mmol/L (136-145); UREA NITROGEN 12 mg/dL (7-18); VANCOMYCIN - TROUGH 9.8 ug/mL (10.0-20.0); eGFR NON AFRICAN AMERICAN 86 mL/min (90-120)
[2016-09-05 06:46] LABS: PLATELET COUNT 49 10x3/uL (130-400); WBC 0.4 10x3/uL (4.8-10.8)
[2016-09-05 07:41] VITALS: BP 123/793
[2016-09-05 08:49] VITALS: BP 155/79
[2016-09-05 13:11] VITALS: BP 151/92
[2016-09-05 16:32] VITALS: BP 172/83
[2016-09-05 20:00] VITALS: BP 164/84
[2016-09-06 01:00] VITALS: BP 124/73
[2016-09-06 05:00] VITALS: BP 147/79
[2016-09-06 06:55] LABS: BASOPHILS 3.8 % (0.0-2.0); EOSINOPHILS 0.6 % (0-7); HEMATOCRIT 32.3 % (36.0-48.0); HEMOGLOBIN 10.8 g/dL (12-16); IMMATURE GRANULOCYTES 1.3 % (0-5); LYMPHOCYTES 52.2 % (15-50); MCH 28.8 pg (26.0-34.0); MCHC 33.4 g/dL (31.0-37.0); MCV 86.1 fL (80.0-100.0); MEAN PLATELET VOLUME 9.3 fL (7.4-10.4); MONOCYTES 14.5 % (2-11); NEUTROPHILS 27.6 % (40-80); RBC 3.75 10x6/uL (4.00-5.40); RDW 13.3 % (11.5-14.5)
[2016-09-06 07:04] LABS: PLATELET COUNT 43 10x3/uL (130-400); WBC 1.6 10x3/uL (4.8-10.8)
[2016-09-06 07:19] LABS: ALBUMIN 2.2 g/dL (3.4-5.0); BILIRUBIN - TOTAL 0.8 mg/dL (0.2-1.3); CALCIUM 8.6 mg/dL (8.5-10.1); CARBON DIOXIDE 30.1 mmol/L (21.0-32.0); MAGNESIUM - SERUM 1.6 mg/dL (1.8-2.4); POTASSIUM - SERUM 3.1 mmol/L (3.5-5.1); PROTEIN - SERUM 5.9 g/dL (6.4-8.2); THYROID STIMULATING HORMONE 0.67 uIU/mL (0.36-3.74)
[2016-09-06 07:26] LABS: CREATININE - SERUM 0.9 mg/dL (0.6-1.3)
[2016-09-06 08:12] VITALS: BP 168/90
[2016-09-06 12:03] VITALS: BP 156/81
[2016-09-06 16:48] VITALS: BP 173/89
[2016-09-06 21:00] VITALS: BP 152/89
[2016-09-07 04:00] VITALS: BP 144/68
[2016-09-07 06:14] LABS: BASOPHILS 1.1 % (0.0-2.0); EOSINOPHILS 0.1 % (0-7); HEMATOCRIT 31.8 % (36.0-48.0); HEMOGLOBIN 10.6 g/dL (12-16); IMMATURE GRANULOCYTES 9.5 % (0-5); LYMPHOCYTES 16.1 % (15-50); MCH 28.8 pg (26.0-34.0); MCHC 33.3 g/dL (31.0-37.0); MCV 86.4 fL (80.0-100.0); MEAN PLATELET VOLUME 9.6 fL (7.4-10.4); MONOCYTES 6.8 % (2-11); NEUTROPHILS 66.4 % (40-80); RBC 3.68 10x6/uL (4.00-5.40); RDW 13.7 % (11.5-14.5)
[2016-09-07 06:26] LABS: PLATELET COUNT 40 10x3/uL (130-400); WBC 7.5 10x3/uL (4.8-10.8)
[2016-09-07 06:40] LABS: ANION GAP 8.3 mmol/L (8-16); CALCIUM 8.2 mg/dL (8.5-10.1); CARBON DIOXIDE 32.9 mmol/L (21.0-32.0); CREATININE - SERUM 1.1 mg/dL (0.6-1.3); MAGNESIUM - SERUM 1.4 mg/dL (1.8-2.4); POTASSIUM - SERUM 3.2 mmol/L (3.5-5.1); VANCOMYCIN - TROUGH 44.1 ug/mL (10.0-20.0)
[2016-09-07 08:37] VITALS: BP 131/81
[2016-09-07 12:30] VITALS: BP 107/63
[2016-09-07 16:53] VITALS: BP 126/78
[2016-09-07 20:00] VITALS: BP 136/82
[2016-09-08 04:00] VITALS: BP 138/78
[2016-09-08 07:04] LABS: CARBON DIOXIDE 32.2 mmol/L (21.0-32.0); CREATININE - SERUM 1.2 mg/dL (0.6-1.3); MAGNESIUM - SERUM 1.5 mg/dL (1.8-2.4); PHOSPHOROUS 3.9 mg/dL (2.5-4.9)
[2016-09-08 07:05] LABS: ANION GAP 10.8 mmol/L (8-16)
[2016-09-08 07:20] LABS: MCH 29.4 pg (26.0-34.0); MCHC 33.6 g/dL (31.0-37.0); MCV 87.5 fL (80.0-100.0); MEAN PLATELET VOLUME 10.5 fL (7.4-10.4); RDW 13.9 % (11.5-14.5)
[2016-09-08 07:28] LABS: HEMATOCRIT 39.9 % (36.0-48.0); HEMOGLOBIN 13.4 g/dL (12-16); PLATELET COUNT 60 10x3/uL (130-400); RBC 4.56 10x6/uL (4.00-5.40); WBC 15.8 10x3/uL (4.8-10.8)
[2016-09-08 07:51] LABS: LYMPHOCYTES 50 % (15-50); MONOCYTES 5 % (2-11); NEUTROPHILS 35 % (40-80); PLATELET ESTIMATE DECREASED
[2016-09-08 07:54] LABS: ANISOCYTOSIS OCC; ELLIPTOCYTES OCC; SPHEROCYTES OCC
[2016-09-08 08:35] VITALS: BP 169/85
[2016-09-08 13:05] VITALS: BP 149/92
[2016-09-08 18:08] VITALS: BP 123/71
[2016-09-08 20:00] VITALS: BP 118/59
[2016-09-09 04:09] VITALS: BP 172/83
[2016-09-09 06:56] LABS: ALBUMIN 2.3 g/dL (3.4-5.0); ANION GAP 6.8 mmol/L (8-16); BILIRUBIN - TOTAL 0.41 mg/dL (0.2-1.3); CALCIUM 9.1 mg/dL (8.5-10.1); CARBON DIOXIDE 38.7 mmol/L (21.0-32.0); CREATININE - SERUM 1.3 mg/dL (0.6-1.3); POTASSIUM - SERUM 3.5 mmol/L (3.5-5.1); PROTEIN - SERUM 6.3 g/dL (6.4-8.2)
[2016-09-09 07:10] LABS: HEMATOCRIT 34.2 % (36.0-48.0); HEMOGLOBIN 11.3 g/dL (12-16); MCH 28.9 pg (26.0-34.0); MCV 87.5 fL (80.0-100.0); MEAN PLATELET VOLUME 10.1 fL (7.4-10.4); PLATELET COUNT 84 10x3/uL (130-400); RBC 3.91 10x6/uL (4.00-5.40); WBC 28.5 10x3/uL (4.8-10.8)
[2016-09-09 08:00] LABS: LYMPHOCYTES 25 % (15-50); MONOCYTES 1 % (2-11); NEUTROPHILS 67 % (40-80)
[2016-09-09 08:02] LABS: ANISOCYTOSIS OCC; ELLIPTOCYTES 1+; TEAR DROP CELLS OCC
[2016-09-09 08:03] LABS: PLATELET ESTIMATE DECREASED
[2016-09-09 08:20] VITALS: BP 186/91
[2016-09-09 12:28] VITALS: BP 155/76
[2016-09-09 15:47] VITALS: BP 131/74
[2016-09-09 20:00] VITALS: BP 136/81
[2016-09-10] VITALS: BP 127/65
[2016-09-10 04:00] VITALS: BP 139/78
[2016-09-10 05:51] LABS: ALBUMIN 2.2 g/dL (3.4-5.0); ANION GAP 6.5 mmol/L (8-16); BILIRUBIN - TOTAL 0.48 mg/dL (0.2-1.3); CALCIUM 8.3 mg/dL (8.5-10.1); CREATININE - SERUM 1.2 mg/dL (0.6-1.3); POTASSIUM - SERUM 3.7 mmol/L (3.5-5.1); PROTEIN - SERUM 5.5 g/dL (6.4-8.2)
[2016-09-10 05:54] LABS: HEMATOCRIT 32.7 % (36.0-48.0); HEMOGLOBIN 10.8 g/dL (12-16); MCH 28.8 pg (26.0-34.0); MCV 87.2 fL (80.0-100.0); MEAN PLATELET VOLUME 10.3 fL (7.4-10.4); PLATELET COUNT 101 10x3/uL (130-400); RBC 3.75 10x6/uL (4.00-5.40); RDW 14.1 % (11.5-14.5); WBC 20.6 10x3/uL (4.8-10.8)
[2016-09-10 05:59] LABS: CARBON DIOXIDE 42.2 mmol/L (21.0-32.0)
[2016-09-10 06:27] LABS: LYMPHOCYTES 9 % (15-50); MONOCYTES 3 % (2-11); NEUTROPHILS 73 % (40-80); PLATELET ESTIMATE DECREASED
[2016-09-10 08:29] VITALS: BP 155/80
[2016-09-10 12:43] VITALS: BP 135/71
[2016-09-10 15:48] VITALS: BP 133/78
[2016-09-10 20:00] VITALS: BP 121/72
[2016-09-11 00:28] VITALS: BP 132/78
[2016-09-11 04:33] VITALS: BP 135/68
[2016-09-11 06:54] LABS: ALBUMIN 2.3 g/dL (3.4-5.0); ANION GAP 6.5 mmol/L (8-16); BILIRUBIN - TOTAL 0.47 mg/dL (0.2-1.3); CALCIUM 8.6 mg/dL (8.5-10.1); CREATININE - SERUM 1.1 mg/dL (0.6-1.3); POTASSIUM - SERUM 3.5 mmol/L (3.5-5.1); PROTEIN - SERUM 5.9 g/dL (6.4-8.2)
[2016-09-11 07:42] LABS: HEMOGLOBIN 10.4 g/dL (12-16); MCH 29.1 pg (26.0-34.0); MCHC 33.5 g/dL (31.0-37.0); MCV 86.6 fL (80.0-100.0); MEAN PLATELET VOLUME 10.2 fL (7.4-10.4); PLATELET COUNT 118 10x3/uL (130-400); RBC 3.58 10x6/uL (4.00-5.40); RDW 14.1 % (11.5-14.5)
[2016-09-11 08:20] LABS: BASOPHILS 1 % (0.0-2.0); LYMPHOCYTES 31 % (15-50); MONOCYTES 17 % (2-11); NEUTROPHILS 50 % (40-80); PLATELET ESTIMATE NORMAL
[2016-09-11 08:21] LABS: ANISOCYTOSIS OCC; ROULEAUX OCC
[2016-09-11 08:31] VITALS: BP 113/79
[2016-09-11 12:34] VITALS: BP 141/93
[2016-09-11 16:26] VITALS: BP 145/74
[2016-09-11 22:05] VITALS: BP 154/83
[2016-09-12 05:26] VITALS: BP 142/79
[2016-09-12 05:38] LABS: HEMATOCRIT 31.7 % (36.0-48.0); HEMOGLOBIN 10.4 g/dL (12-16); MCH 29.1 pg (26.0-34.0); MCHC 32.8 g/dL (31.0-37.0); MCV 88.5 fL (80.0-100.0); RBC 3.58 10x6/uL (4.00-5.40); RDW 14.1 % (11.5-14.5); WBC 17.5 10x3/uL (4.8-10.8)
[2016-09-12 05:55] LABS: PLATELET COUNT 149 10x3/uL (130-400)
[2016-09-12 06:04] LABS: BASOPHILS 3 % (0.0-2.0); EOSINOPHILS 2 % (0-7); LYMPHOCYTES 44 % (15-50); MONOCYTES 15 % (2-11); NEUTROPHILS 31 % (40-80); PHOSPHOROUS 4.8 mg/dL (2.5-4.9); PLATELET ESTIMATE NORMAL
[2016-09-12 06:13] LABS: ALBUMIN 2.5 g/dL (3.4-5.0); ANION GAP 5.3 mmol/L (8-16); BILIRUBIN - TOTAL 0.37 mg/dL (0.2-1.3); CALCIUM 8.6 mg/dL (8.5-10.1); CREATININE - SERUM 1.3 mg/dL (0.6-1.3); POTASSIUM - SERUM 3.7 mmol/L (3.5-5.1); PROTEIN - SERUM 5.7 g/dL (6.4-8.2)
[2016-09-12 06:17] LABS: CARBON DIOXIDE 42.4 mmol/L (21.0-32.0)
[2016-09-12 08:30] VITALS: BP 155/81
[2016-09-12 12:54] VITALS: BP 154/82
[2016-09-12 17:00] VITALS: BP 157/79
[2016-09-12 20:00] VITALS: BP 134/69
[2016-09-13 05:40] VITALS: BP 141/83
[2016-09-13 05:45] LABS: HEMATOCRIT 32.5 % (36.0-48.0); HEMOGLOBIN 10.5 g/dL (12-16); MCH 28.8 pg (26.0-34.0); MCHC 32.3 g/dL (31.0-37.0); MCV 89.3 fL (80.0-100.0); MEAN PLATELET VOLUME 10.2 fL (7.4-10.4); PLATELET COUNT 186 10x3/uL (130-400); RBC 3.64 10x6/uL (4.00-5.40); RDW 14.1 % (11.5-14.5); WBC 20.9 10x3/uL (4.8-10.8)
[2016-09-13 05:47] LABS: ALBUMIN 2.5 g/dL (3.4-5.0); ANION GAP 5.6 mmol/L (8-16); BILIRUBIN - TOTAL 0.4 mg/dL (0.2-1.3); CALCIUM 8.6 mg/dL (8.5-10.1); CARBON DIOXIDE 38.7 mmol/L (21.0-32.0); CREATININE - SERUM 1.1 mg/dL (0.6-1.3); MAGNESIUM - SERUM 1.9 mg/dL (1.8-2.4); POTASSIUM - SERUM 3.3 mmol/L (3.5-5.1); PROTEIN - SERUM 5.9 g/dL (6.4-8.2)
[2016-09-13 05:50] LABS: BASOPHILS 2 % (0.0-2.0); LYMPHOCYTES 8 % (15-50); MONOCYTES 21 % (2-11); NEUTROPHILS 66 % (40-80); PLATELET ESTIMATE NORMAL
[2016-09-13 08:06] VITALS: BP 139/62
[2016-09-13 12:40] VITALS: BP 124/65
[2016-09-13 16:02] VITALS: BP 143/73
[2016-09-13 20:00] VITALS: BP 138/84
[2016-09-14] VITALS: BP 161/80
[2016-09-14 04:00] VITALS: BP 154/78
[2016-09-14 07:23] LABS: ANION GAP 6.3 mmol/L (8-16); CALCIUM 8.6 mg/dL (8.5-10.1); CARBON DIOXIDE 39.7 mmol/L (21.0-32.0); CREATININE - SERUM 1.1 mg/dL (0.6-1.3); MAGNESIUM - SERUM 1.9 mg/dL (1.8-2.4); PHOSPHOROUS 3.4 mg/dL (2.5-4.9)
[2016-09-14 08:12] VITALS: BP 169/80
[2016-09-14 10:15] LABS: BASOPHILS 2.4 % (0.0-2.0); EOSINOPHILS 0 % (0-7); HEMATOCRIT 36.1 % (36.0-48.0); HEMOGLOBIN 11.8 g/dL (12-16); IMMATURE GRANULOCYTES 22.4 % (0-5); LYMPHOCYTES 7.7 % (15-50); MCH 29.1 pg (26.0-34.0); MCHC 32.7 g/dL (31.0-37.0); MCV 88.9 fL (80.0-100.0); MEAN PLATELET VOLUME 9.6 fL (7.4-10.4); MONOCYTES 5.8 % (2-11); NEUTROPHILS 61.7 % (40-80); PLATELET COUNT 245 10x3/uL (130-400); RBC 4.06 10x6/uL (4.00-5.40); RDW 14.2 % (11.5-14.5); WBC 27.7 10x3/uL (4.8-10.8)
[2016-09-14 10:36] LABS: ALBUMIN 2.9 g/dL (3.4-5.0); ANION GAP 5.8 mmol/L (8-16); BILIRUBIN - TOTAL 0.52 mg/dL (0.2-1.3); CARBON DIOXIDE 39.8 mmol/L (21.0-32.0); CREATININE - SERUM 1.1 mg/dL (0.6-1.3); POTASSIUM - SERUM 3.6 mmol/L (3.5-5.1); PROTEIN - SERUM 6.8 g/dL (6.4-8.2)
[2016-09-14 12:04] VITALS: BP 176/71
[2016-09-14 15:59] VITALS: BP 154/79
[2016-09-14 20:00] VITALS: BP 164/77
[2016-09-15 04:00] VITALS: BP 155/70
[2016-09-15 05:46] LABS: BASOPHILS 2.7 % (0.0-2.0); EOSINOPHILS 0 % (0-7); HEMATOCRIT 33.9 % (36.0-48.0); HEMOGLOBIN 10.9 g/dL (12-16); IMMATURE GRANULOCYTES 18.2 % (0-5); LYMPHOCYTES 7.2 % (15-50); MCHC 32.2 g/dL (31.0-37.0); MCV 90.2 fL (80.0-100.0); MEAN PLATELET VOLUME 9.7 fL (7.4-10.4); MONOCYTES 6.5 % (2-11); NEUTROPHILS 65.4 % (40-80); PLATELET COUNT 269 10x3/uL (130-400); RBC 3.76 10x6/uL (4.00-5.40); RDW 14.3 % (11.5-14.5); WBC 24.5 10x3/uL (4.8-10.8)
[2016-09-15 05:50] LABS: ALBUMIN 2.7 g/dL (3.4-5.0); ANION GAP 9.1 mmol/L (8-16); BILIRUBIN - TOTAL 0.36 mg/dL (0.2-1.3); CALCIUM 8.5 mg/dL (8.5-10.1); CARBON DIOXIDE 38.4 mmol/L (21.0-32.0); CREATININE - SERUM 1.1 mg/dL (0.6-1.3); POTASSIUM - SERUM 3.5 mmol/L (3.5-5.1); PROTEIN - SERUM 5.9 g/dL (6.4-8.2)
[2016-09-15 08:41] VITALS: BP 190/89
[2016-09-15 12:57] VITALS: BP 182/90
[2016-09-15] MEDS ORDERED: PREDNISONE10 MG PO (15:45)
[2016-09-15] MEDS ORDERED: XANAX0.5 MG PO (15:45)
[2016-09-15] MEDS ORDERED: HYDROCODONE-APA1 TAB PO (15:45)
[2016-09-15] MEDS ORDERED: ONCOLOGY MOUTHWA5 ML PO (15:45)
--- NOTE | 2016-09-18 13:49 | CN ---
PATIENT NAME:KAMALJIT BANG MEDICAL RECORD: [id number] : 42 LOCATION:[facility] ADMIT DATE: 09/03/16 ACCOUNT: [id number] CONSULTING PHYSICIAN: EVERT GUSTAFSON MD REFERRING PHYSICIAN: LAST RAMIREZ MD DATE OF CONSULTATION: 09/03/2016 CONSULT REQUESTING PHYSICIAN: Dr. Last Ramirez. REASON FOR CONSULTATION: Acute exacerbation of chronic obstructive pulmonary disease and neutropenia. HISTORY OF PRESENT ILLNESS: Ms. Bang is a 76-year-old female. She is recently diagnosed with a CA of the lung. She was discharged home a few days ago. Yesterday, she went for dinner with her family and then after that, she was congested in her chest. She is coughing, wheezing and shortness of breath. After that, she has worsening lower extremity swelling. The patient was brought into the ER. The chest radiograph was clear, but the patient was neutropenic. PAST MEDICAL HISTORY: 1. Recently diagnosed with CA of the lung. 2. Chronic obstructive pulmonary disease. 3. Allergic rhinitis. 4. Hypertension. 5. Hyperlipidemia. 6. Gastroesophageal reflux disease. 7. Depression. 8. Osteoarthritis. 9. Vitamin D deficiency. ALLERGIES: SHE IS ALLERGIC TO STATINS, SULFA AND BUPROPION. PRESENT MEDICATIONS: On [employer] was reviewed. PERSONAL AND SOCIAL HISTORY: The patient is an ex-smoker. She is a nondrinker. FAMILY HISTORY: Noncontributory. PHYSICAL EXAMINATION: GENERAL: Now, the patient is lying comfortably. She is wearing nasal cannula oxygen. She is not in acute distress. VITAL SIGNS: The blood pressure is 124/61, pulse is 74, respiration is 20, and temperature is 101.3. SpO2 was 95% on 2 liter nasal cannula. HEENT: Conjunctivae is pink. Sclerae nonicteric. NECK: Neck is supple, no JVD. CHEST: There are wheezes on forceful expiration. HEART: Rhythm regular, normal sound, no murmur. ABDOMEN: Abdomen is soft. Bowel sounds present. No hepatosplenomegaly. RECTAL: Deferred. EXTREMITIES: No cyanosis. No clubbing. There are 2+ pedal edema. SKIN: The skin is warm, normal turgor. CENTRAL NERVOUS SYSTEM: The patient is awake and alert. There are no obvious cranial nerve abnormality. The gait was not tested. IMPRESSION: CONSULT REPORT [id number] KAMALJIT BANG 1. Acute exacerbation of chronic obstructive pulmonary disease. 2. Acute tracheobronchitis. 3. Neutropenic fever. 4. Neutropenia. 5. 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 6. 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 7. Qafzo-iy-lwqwzpz hypoxic respiratory failure. 8. Hypokalemia. 9. Allergic rhinitis. 10. Gastroesophageal reflux disease. RECOMMENDATION: 1. Start her on albuterol/ipratropium nebulizer, budesonide and Brovana nebulizer, methylprednisolone IV, cover antibiotic for Gram-negative aliyah, neutropenic fever and with vancomycin, cefepime and Levaquin. 2. Follow up labs and chest radiograph, Flonase nasal spray, Singulair 10 mg a day. 3. Continue home medication. 4. Neutropenic precautions. Dr. Louise has already been consulted. Dr. Ramirez, once again thanks for involving me in the care of Ms. Bang. TRANSINT:[id number] Voice Confirmation ID: [id number] DOCUMENT ID: [id number] EVERT GUSTAFSON MD at 1349 CC: BEBA LAZCANO MD [id number] DICTATION DATE: 09/03/16 1453 LIFE EDUCATOR: 09/03/162051 DIS IN 09/15/[address] [address]
== END 2016-09-15 19:54 | disposition home health service (06) | DRG 189 ==
LOC: D.ER 09:42 → D.MS 12:36
PROVIDERS: Emergency Medicine; Family Medicine; Internal Medicine Pulmonary Disease; ADMIT Family Medicine Adult Medicine
PROC: 05HF33Z Insertion of Infusion Device into Left Cephalic Vein, Percutaneous Approach (ICD-10-PCS; principal; 2016-09-10)
PROC: B54NZZA Ultrasonography of Left Upper Extremity Veins, Guidance (ICD-10-PCS; 2016-09-10)
DX: J96.21 Acute and chronic respiratory failure with hypoxia (principal); J18.1 Lobar pneumonia, unspecified organism; J44.0 Chronic obstructive pulmonary disease with (acute) lower respiratory infection; C34.90 Malignant neoplasm of unspecified part of unspecified bronchus or lung; F17.203 Nicotine dependence unspecified, with withdrawal; B37.0 Candidal stomatitis; D70.1 Agranulocytosis secondary to cancer chemotherapy; T45.1X5A Adverse effect of antineoplastic and immunosuppressive drugs, initial encounter; G89.29 Other chronic pain; K21.9 Gastro-esophageal reflux disease without esophagitis; F32.9 Major depressive disorder, single episode, unspecified; Z99.81 Dependence on supplemental oxygen; I10 Essential (primary) hypertension; R53.81 Other malaise; J20.9 Acute bronchitis, unspecified; E87.6 Hypokalemia; E83.42 Hypomagnesemia; E87.8 Other disorders of electrolyte and fluid balance, not elsewhere classified

== ENCOUNTER 2016-10-18 01:57 | Inpatient (IN) | payer MEDICARE ==
[~2016-10-18] VITALS: Ht 162.6 cm; Wt 70.5 kg
--- NOTE | ~2016-10-18 | HP ---
PATIENT: KAMALJIT BANG MEDICAL RECORD: [id number] ACCOUNT: [id number] LOCATION:[facility].2111 : 41 ADMISSION DATE: 10/18/16 HISTORY AND PHYSICAL EXAMINATION HISTORY OF PRESENT ILLNESS: This 76-year-old white female presented to the Emergency Room from the [facility] for evaluation of increasing shortness of breath. The patient was diagnosed with pneumonia approximately 4-5 days ago and has been on antibiotics since that time. She does have a history of lung cancer and is being treated by oncologist, Dr. Louise. The patient was sent in after the sat in the [facility] were 77% on 2 liters nasal cannula and need to have increasing evaluation. The patient was 90% after adjusting her medications in the ER, but was found to have profound hypokalemia and was needed to be admitted for further evaluation and treatment. PAST MEDICAL HISTORY: Significant for lung cancer, chronic obstructive pulmonary disease, recent pneumonia, arrhythmia, vocal cord polyps, respiratory insufficiency, coronary artery disease, status post chemotherapy, thrombocytopenia, oxygen dependent, gastroesophageal reflux disease, nicotine dependence, urine incontinence, hypertension, depression. ALLERGIES: WELLBUTRIN, SULFUR AND STATINS. PAST SURGICAL HISTORY: As per chart. MEDICATIONS: As listed in the MAR sheet. SOCIAL HISTORY: The patient does not smoke, does not drink alcohol. REVIEW OF SYSTEMS: As above including weakness in the extremities, tremors and shortness of breath. PHYSICAL EXAMINATION: VITAL SIGNS: At the time of history and physical as below. GENERAL: She is a well-developed, well-nourished, anxious 76-year-old white female on oxygen nasal cannula. Has alopecia secondary to chemo. HEENT: Her pupils are equal, round, reactive to light. Extraocular movements are intact. Oral cavity and oropharynx otherwise clear. NECK: No cervical or pharyngeal adenopathy. No nuchal rigidity. LUNGS: Coarse rales heard bilaterally. HEART: Regular rate and rhythm with tachycardia. ABDOMEN: Soft, nontender, positive bowel sounds. No hepatosplenomegaly, no masses. EXTREMITIES: Tremor in the bilateral lower extremity is noted, has decreased ground water technician strength that is very minimum with vigorous exertion she is able to have good ground water technician strength. Capillary refill is normal. LABORATORY DATA: Visualization of her laboratory does show evidence of hypokalemia. Chest x-ray showed pneumonia versus atelectasis. ASSESSMENT: 1. Chronic obstructive pulmonary disease. 2. Hypokalemia. 3. Lung cancer. 4. Generalized weakness. HISTORY AND PHYSICAL [id number] KAMALJIT BANG PLAN: The patient will be admitted to the hospital. Pulmonary consultation will be obtained. Hem/onc consultation Dr. Louise re-obtain, pulmonary toilet, replace potassium, Solu-Medrol and updrafts for her COPD and check laboratory appropriately. TRANSINT:[id number] Voice Confirmation ID: [id number] DOCUMENT ID: [id number] SADIQ GOMEZ MD CC: [id number] DICTATION DATE: 10/18/16 1042 CROSSING FLAGMAN: 10/18/16 1156 ADM IN [facility] [address] [id number]
--- NOTE | ~2016-10-18 | CN ---
PATIENT NAME:KAMALJIT BANG MEDICAL RECORD: [id number] : 42 LOCATION:D. D.2111 ADMIT DATE: 10/18/16 ACCOUNT: [id number] CONSULTING PHYSICIAN: EVERT GUSTAFSON MD REFERRING PHYSICIAN: BRYSON STOUT MD DATE OF CONSULTATION: 10/18/2016 PULMONARY CONSULTATION CONSULT REQUESTING PHYSICIAN: Bryson Stout MD REASON FOR CONSULTATION: Gzgdd-jo-pmpgaht hypoxic respiratory failure, chronic obstructive pulmonary disease exacerbation. HISTORY OF PRESENT ILLNESS: Ms. Bang is a 76-year-old female. 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 She is followed by Dr. Louise. The [facility], but she was not doing well. She found her pulse ox in 70. The patient was brought into the ER. She also has shortness of breath. She has very limited activity. Denies any fever, chills or cough, with very little sputum production. REVIEW OF SYSTEMS: Mainly in the history of present illness. PAST MEDICAL HISTORY: 1. Small cell carcinoma of the lung. 2. Chronic obstructive pulmonary disease. 3. Allergic rhinitis. 4. Asthma. 5. Hypertension. 6. Hyperlipidemia. 7. Gastroesophageal reflux disease. 8. Anxiety, depression. 9. Osteoarthritis. 10. Vitamin D deficiency. PAST SURGICAL HISTORY: She is status post lung biopsy. ALLERGIES: SHE IS ALLERGIC TO STATINS, SULFA, AND BUPROPION. PERSONAL AND SOCIAL HISTORY: The patient is an ex-smoker. She is a nondrinker. FAMILY HISTORY: Noncontributory. PHYSICAL EXAMINATION: GENERAL: Now, the patient is lying comfortably in bed. She is not in acute distress. VITAL SIGNS: The blood pressure is 139/71, pulse is 83, respirations 18, temperature 97, SpO2 98% on 4 liter nasal cannula. HEENT: Conjunctivae pink, sclerae nonicteric. NECK: Supple, no JVD. CHEST: The chest excursion is minimal, prolonged expiration with wheezing. There is a bibasilar crackles. HEART: Rhythm regular, normal sound, no murmur. ABDOMEN: Soft, bowel sounds present. No hepatosplenomegaly. RECTAL: Deferred. CONSULT REPORT [id number] KAMALJIT BANG EXTREMITIES: No cyanosis, no clubbing, no pedal edema. SKIN: Warm, normal turgor. CENTRAL NERVOUS SYSTEM: The patient is awake and alert. There are no obvious cranial nerve abnormality. The gait was not tested. CHEST RADIOGRAPH: There is bibasilar infiltrates. LABORATORY DATA: CBC: WBC 4.6, hemoglobin 9, hematocrit 27.6 and platelet count 107. Sodium 140, potassium was 2.1, BUN is 26, creatinine is 1, glucose 89. IMPRESSION: 1. Kuuom-bv-idhlcgc hypoxic respiratory failure. 2. Acute exacerbation of chronic obstructive pulmonary disease. 3. Bilateral pneumonia, possible hospital-acquired pneumonia. 4. Small cell carcinoma of the lung. 5. Hypokalemia. 6. Anemia. 7. Gastroesophageal reflux disease. RECOMMENDATION: 1. Albuterol ipratropium nebulizer, discontinue. 2. Start her on Xopenex and ipratropium nebulizer, Brovana, budesonide nebulizer, methylprednisolone IV. Continue Levaquin. I will add cefepime. Follow up labs and chest radiograph in the morning. The patient is already been hospice and has been consulted. Dr. Stout, thank you for involving me in the care of Ms. Bang. TRANSINT:[id number] Voice Confirmation ID: [id number] DOCUMENT ID: [id number] EVERT GUSTAFSON MD CC: BRYSON STOUT MD [id number] DICTATION DATE: 10/18/161618 DIETARY SERVICES DIRECTOR: 10/18/16 2342 ADM IN [facility] [address] [id number]
[~2016-10-18 01:57] MED LIST changes: +HYDROCODONE-APA1 TAB PO; +ONCOLOGY MOUTHWA5 ML PO; +XANAX0.5 MG PO
[2016-10-18 03:11] LABS: BASOPHILS 0.4 % (0-2); EOSINOPHILS 0.2 % (0-7); HEMATOCRIT 27.6 % (36.0-48.0); LYMPHOCYTES 15.2 % (15-50); MCH 30.4 pg (26.0-34.0); MCHC 32.6 g/dL (31.0-37.0); MCV 93.2 fL (80.0-100.0); NEUTROPHILS 79.2 % (40-80); PLATELET COUNT 107 10x3/uL (130-400); RBC 2.96 10x6/uL (4.00-5.40); RDW 18.2 % (11.5-14.5); WBC 4.6 10x3/uL (4.8-10.8)
[2016-10-18 03:23] LABS: CALCIUM 8.7 mg/dL (8.5-10.1)
[2016-10-18 03:25] LABS: ANION GAP 6.3 mmol/L (8-16); CARBON DIOXIDE 41.8 mmol/L (21.0-32.0); POTASSIUM - SERUM 2.1 mmol/L (3.5-5.1)
--- NOTE | 2016-10-18 07:01 | NUR ---
RECEIVED REPORT. ASSUMED CARE OF PATIENT. ASSISTED TO PULL PATIENT UP IN THE BED. RESP EVEN AND UNLABORED. CALL LIGHT WITHIN REACH. ALERT/ORIENTED. NO DISTRESS. NURSE REPORTS PATIENTS ARRIVING TO UNIT AT 0615/0630 THIS AM.
[2016-10-18 08:10] VITALS: BP 148/78
[2016-10-18 09:23] VITALS: BP 148/78; BMI 30.1
--- NOTE | 2016-10-18 09:55 | NUR ---
K+ #1 ADMINISTERED AT THIS TIME.
[2016-10-18 11:49] VITALS: BP 123/60
--- NOTE | 2016-10-18 12:44 | NUR ---
SPOKE TO BISI, AUTO BODY REPAIRMAN, AND NOTIFIED HER OF HOSPICE CONSULT PER . BISI STATED SHE WOULD COME TALK WITH THE FAMILY AND NOTIFY HOSPICE AFTER SPEAKING WITH THE FAMILY.
--- NOTE | 2016-10-18 13:35 | NUR ---
ORDER RECEIVED: Order for [facility] recieved. CM met with patient and her son Jai Mata, , who stated they would like [facility] since they come to this hospital. RUFINA signed for [facility] by patient's son. CM contacted [facility] [phone], spoke to Patricia who stated the nurse will call Jai Mata to set up a time to meet with him and patient. CM will continue to follow and will assist as needed with dc plan/needs. Madison Galindo RN, [facility] [phone]
--- NOTE | 2016-10-18 14:45 | NUR ---
INCONTINENT CARE PROVIDED AT THIS TIME. LINEN CHANGE PROVIDED. CALL LIGHT WITHIN REACH. NO DISTRESS.
--- NOTE | 2016-10-18 15:43 | NUR ---
HOSPICE HERE FOR INPATIENT HOSPICE EVAL AT THIS TIME.
[2016-10-18 16:14] VITALS: BP 139/71
--- NOTE | 2016-10-18 18:20 | NUR ---
INCONTINENT CARE PROVIDED. CALL LIGHT WITHIN REACH. NO DISTRESS.
--- NOTE | 2016-10-18 18:33 | NUR ---
DESPITE ALL K+ ADMINISTERED, K+ LEVEL REMAINS LOW AT 3.0 EP FOLLOWED AND 40 MEQ GIVEN AT THIS TIME AND ORDER PLACED FOR LEVEL TO BE RECHECKED AT 2230.
--- NOTE | 2016-10-18 19:40 | NUR ---
TAKING A BREATHING TREATMENT, REQUEST ICE, GIVEN, DENIES OTHER NEEDS, CALL LIGHT IN REACH, BED LOWEST POSITION, WILL CONTINUE TO MONITOR
[2016-10-18 20:00] VITALS: BP 139/75
--- NOTE | 2016-10-18 20:50 | NUR ---
REFUSED [facility], STATES "IT MESSES ME UP, I'LL WAIT TO TALK TO DR. GUSTAFSON IN THE MORNING"
[2016-10-19] VITALS: BP 124/60
--- NOTE | 2016-10-19 00:27 | NUR ---
MANAGER STATISTICS AT BEDSIDE FOR VS. NEEDS ADDRESSED. CALL LIGHT IN REACH. WILL CONT TO MONITOR.
[2016-10-19 05:49] VITALS: BP 142/62
[2016-10-19 06:05] LABS: BASOPHILS 0.5 % (0-2); EOSINOPHILS 0.2 % (0-7); HEMOGLOBIN 8.6 g/dL (12-16); IMMATURE GRANULOCYTES 4.7 % (0-5); LYMPHOCYTES 17.3 % (15-50); MCH 31.4 pg (26.0-34.0); MCHC 33.1 g/dL (31.0-37.0); MCV 94.9 fL (80.0-100.0); MEAN PLATELET VOLUME 10.2 fL (7.4-10.4); MONOCYTES 3.7 % (2-11); NEUTROPHILS 73.6 % (40-80); PLATELET COUNT 107 10x3/uL (130-400); RBC 2.74 10x6/uL (4.00-5.40); RDW 18.3 % (11.5-14.5)
--- NOTE | 2016-10-19 06:13 | NUR ---
BATH IN PROGRESS, DENIES NEEDS
[2016-10-19 06:27] LABS: WBC 6.2 10x3/uL (4.8-10.8)
[2016-10-19 06:41] LABS: ALBUMIN 1.6 g/dL (3.4-5.0); BILIRUBIN - TOTAL 0.6 mg/dL (0.2-1.3); CALCIUM 8.5 mg/dL (8.5-10.1); CREATININE - SERUM 0.9 mg/dL (0.6-1.3); POTASSIUM - SERUM 3.5 mmol/L (3.5-5.1); THYROID STIMULATING HORMONE 0.43 uIU/mL (0.36-3.74)
--- NOTE | 2016-10-19 06:52 | NUR ---
RECEIVED REPORT FROM CRYOGENICS REPAIRER NURSE, TARYN VAZQUEZ. PT IN BED, DENIES ANY NEEDS AT THIS TIME. PT SEEMS A LITTLE ANXIOUS THIS AM. CALL LIGHT IN REACH, NAD NOTED, WILL CONTINUE TO MONITOR.
[2016-10-19 06:54] LABS: ANION GAP 4.5 mmol/L (8-16)
[2016-10-19 08:00] VITALS: BP 137/77
--- NOTE | 2016-10-19 08:46 | NUR ---
ADMINISTERED MORNING MEDICATIONS, PT HAS A LOT OF ANXITY TODAY. DENIES ANY NEEDS AT THIS TIME. CALL LIGHT IN REACH, NAD NOTED, WILL CONTINUE TO MONITOR.
--- NOTE | 2016-10-19 09:42 | NUR ---
Patient Name: KAMALJIT BANG Encounter No: [id number] : 1940 Primary Insurance: [employer] MEDICARE ADV Anticipated DC Date: Planned Disposition: Nursing Facility JOHN Cert OR HOME HOSPICE External Planned Provider: [facility] DCP follow-up note: CM CALLED [facility], , SPOKE TO DAVID WHO INFORMED CM THAT ASSESSEMENT COMPLETED YESTERDAY, PT DOES NOT MEET CRITERIA FOR INPATIENT HOSPICE. [facility] CASKET ASSEMBLER TO MEET WITH PT AND FAMILY TODAY TO DISCUSS AND WORK ON OTHER PLACEMENT OPTIONS WITH HOSPICE. CM TO CONTINUE TO FOLLOW AND ASSIST NEEDED. Jordan Cardenas, CASE MANAGEMENT
[2016-10-19 10:35] VITALS: Ht 162.6 cm; Wt 70.5 kg
--- NOTE | 2016-10-19 10:49 | NUR ---
RATIONALE FOR SCD'S EXPLAINED. REFUSED SCD'S
[2016-10-19 12:00] VITALS: BP 114/55
--- NOTE | 2016-10-19 14:07 | NUR ---
Patient Name: KAMALJIT BANG Encounter No: [id number] : 1940 Primary Insurance: WE[employer] MEDICARE ADV Anticipated DC Date: 10-19-2016 Planned Disposition: Alf Facility External Planned Provider: [facility], MARKETING [employer] C[employer] MEDICAID BED DCP follow-up note: CM RECEIVED MESSAGE FROM CLARY ARRIAZA OF [facility], PT'S SON WILL BE SIGNING SHELTER CARE PAPERWORK AT THE [facility] AT ABOUT 3:30PM TODAY, HOSPICE CAN ADMIT PT AFTER HER ARRIVAL AT THE [facility] IF THE DOCTOR IS READY TO DISCHARGE. FOR DISCHARGE, NOTIFY [facility] AT [phone], FAX DISCHARGE INFORMATION TO [facility] AT [phone]. NURSE REPORT TO BE CALLED TO THE [facility] AT [phone], FAX DISCHARGE INFORMATION TO THE [facility] AT [phone]. THE [facility] TO ARRANGE VAN TRANSPORTATION. Jordan Cardenas, CASE MANAGEMENT
[2016-10-19] MEDS ORDERED: LEVAQUIN500 MG PO (15:17)
[2016-10-19 16:00] VITALS: BP 112/59
--- NOTE | 2016-10-19 18:09 | NUR ---
Patient Name: KAMALJIT BANG Encounter No: [id number] : 1940 Primary Insurance: WE[employer] MEDICARE ADV Anticipated DC Date: 10-19-2016 Planned Disposition: Nursing Home Facility External Planned Provider: [facility], FRONT END TECHNICIAN CARE MEDICAID BED DCP follow-up note: CM WAITING FOR PT'S FAMILY TO COMLPETE ARRANGEMENTS FOR PT'S RETURN TO THE [facility] AND WILL BE ADMITTED TO HOSPICE ONCE RETURNED TO THE [facility]. CM FAXED DISCHARGE INFORMATION TO [facility] AT [phone] AND [facility] AT [phone]. ONCE NOTIFIED BY [facility] / [facility] THAT ALL ARRANGEMENTS FOR DISCHARGE HAVE BEEN MADE, NURSE REPORT TO BE CALLED TO THE [facility] AT [phone]. THE [facility] TO ARRANGE VAN TRANSPORTATION. Jordan Cardenas, CASE MANAGEMENT
[2016-10-19 19:00] VITALS: BP 158/78
--- NOTE | 2016-10-19 20:35 | NUR ---
ADMIN SCHED MEDS. REFUSED SOLU-MEDROL. C/O BACK PAIN "HURTING". ADMIN NORCO PO. REPOSITIONED UP IN BED WITH MIX HOUSE OPERATOR ASSISTING. PLACED PILLOW UNDER LEGS AND TO BACK.
--- NOTE | 2016-10-19 21:00 | NUR ---
CCNP'S GIVING A BATH. RATES PAIN LEVEL AT 3 ON NUMBER SCALE.
[2016-10-20] VITALS: BP 137/66
--- NOTE | 2016-10-20 02:40 | NUR ---
RESTING WITH EYES CLOSED. RR 16 EVEN U/L, 02 ON AT 2L/NC. NO S/S OF PAIN OR DISCOMFORT.
[2016-10-20 04:00] VITALS: BP 173/89
--- NOTE | 2016-10-20 06:16 | NUR ---
REFUSING MEDS. STATING "I AM GOING HOME AND WANT THE DOCTOR NOW TO TELL ME WHAT TIME I AM GOING".
--- NOTE | 2016-10-20 06:47 | NUR ---
RECEIVED REPORT FROM WIRER NURSE, JEREMY HARVEY. PT IN BED, SLEEPING AT THIS TIME. CALL LIGHT IN REACH, NAD NOTED, WILL CONTINUE TO MONITOR.
[2016-10-20 07:57] VITALS: BP 146/83
--- NOTE | 2016-10-20 09:05 | NUR ---
ADMINISTERED MORNING MEDICATIONS. PT ASKING WHEN SHE IS GOING TO GET TO GO BACK TO THE [facility]. FINANCIAL WRITER LINNEA, WAS AT BEDSIDE EARLIER AND INFOMRED HER THAT IT WOULD BE BETWEEN 10-12. PT REQUESTED VANILLA PUDDING TO TAKE MEDS WITH. PT DENIES ANY OTHER NEEDS AT THIS TIME. CALL LIGHT IN REACH, TESSA DUBOSE, WILL CONTINUE TO MONITOR.
--- NOTE | 2016-10-20 09:09 | NUR ---
Patient Name: KAMALJIT BANG Encounter No: [id number] : 1940 Primary Insurance: [employer] MEDICARE ADV Anticipated DC Date: 10-19-2016 Planned Disposition: Long-Term Facility External Planned Provider: [facility], MANAGED CARE LIAISON CARE MEDICAID BED DCP follow-up note: CM RECEIVED MESSAGE FROM CLARY ARRIAZA OF [facility], SHE IS WORKING WITH THE [facility] TO WORK OUT PLACEMENT ARRANGEMENTS, THE [facility] HAS PAPERWORK FOR MEDICAID AND THE PERSON THEY NEED TO SPEAK TO AT DEPARTMENT OF HUMAN SERVICES WILL NOT BE IN UNTIL 1000AM TODAY. CLARY ANTICIPATES COMPLETION OF FINANCIAL ARRANGEMENTS TO BE BETWEEN 10AM AND NOON TODAY. CM NOTIFIED PT, PROVIDED AND DISCUSSED IMPORTANT MESSAGE FROM MEDICARE. PT REPORTS AGREEMENT WITH DISCHARGE PLAN, ASKED CM TO CALL HER SON; CM CALLED KELLIE WHO HAS PROVIDED ALL FINANCIAL INFORMATION TO THE [facility] AND IS IN AGREEMENT WITH DISCHARGE TO THE [facility] WITH [facility] ONCE THE [facility] WORKS OUT FINANCIALS. PT'S SON CALLED AND SPOKE TO PT VIA PHONE. PT DENIES FURTHER DISCHARGE NEEDS. ONCE NOTIFIED BY [facility] / THE [facility] THAT ALL ARRANGEMENTS FOR DISCHARGE HAVE BEEN MADE, NURSE REPORT TO BE CALLED TO THE [facility] AT [phone]. THE [facility] TO ARRANGE VAN TRANSPORTATION. Jordan Cardenas, CASE MANAGEMENT
[2016-10-20 12:14] VITALS: BP 144/59
--- NOTE | 2016-10-20 12:18 | NUR ---
CALLED THE [facility] AND GAVE REPORT TO OLE VAZQUEZ WHO WILL BE TAKING CARE OF PT.
--- NOTE | 2016-10-20 12:20 | NUR ---
Patient Name: KAMALJIT BANG Encounter No: [id number] : 1940 Primary Insurance: WE[employer] MEDICARE ADV Anticipated DC Date: 10-19-2016 Planned Disposition: Fdc Facility External Planned Provider: [facility], SPREAD CUTTER CARE MEDICAID BED DCP follow-up note: CLARY OF [place] NOTIFIED CM THAT ALL ARRANGEMENTS FOR DISCHARGE HAVE BEEN MADE AT THE [facility], [facility] TO ADMIT PT AFTER PT'S RETURN TO THE [facility] TODAY. CM NOTIFIED PT AND SPOKE TO PT'S SON VIA PHONE WHO WILL MEET PT AT THE [facility] TODAY; BOTH IN AGREEMENT WITH DISCHARGE PLAN. BEDSIDE NURSE NOTIFIED. NURSE REPORT TO BE CALLED TO THE [facility] AT [phone]. THE [facility] VAN TO NEEDLE PROCESS FELT GOODS SUPERVISOR PT AT 1:00PM. Jordan Cardenas, CASE MANAGEMENT
--- NOTE | 2016-10-20 12:33 | NUR ---
PROVIDED VERBAL AND WRITTEN DISCHARGE INSTRUCTIONS TO PT. PT VERBALIZED UNDERSTANDING REGARDING DISCHARGE. D/C LT AC IV, TIP INTACT. PT WILL CALL WHEN SHE IS DONE EATING HER LUNCH, SO WE CAN GET HER READY TO GO BACK TO THE [facility].
--- NOTE | 2016-10-20 13:32 | NUR ---
GROUP HOME STAFF HERE TO DONOR SERVICES COORDINATOR PT. PT LEFT UNIT VIA WHEELCHAIR, NAD NOTED.
== END 2016-10-20 13:40 | disposition home health service (06) | DRG 189 ==
LOC: D.ER 01:57 → D.M2 05:15
PROVIDERS: Family Medicine; ADMIT Family Medicine
DX: J96.21 Acute and chronic respiratory failure with hypoxia (principal); J18.9 Pneumonia, unspecified organism; J44.1 Chronic obstructive pulmonary disease with (acute) exacerbation; J44.0 Chronic obstructive pulmonary disease with (acute) lower respiratory infection; C34.90 Malignant neoplasm of unspecified part of unspecified bronchus or lung; I25.10 Atherosclerotic heart disease of native coronary artery without angina pectoris; Z66 Do not resuscitate; D64.9 Anemia, unspecified; E87.6 Hypokalemia; E78.5 Hyperlipidemia, unspecified; F32.9 Major depressive disorder, single episode, unspecified; K21.9 Gastro-esophageal reflux disease without esophagitis; Z87.891 Personal history of nicotine dependence